=== PATIENT | male | born 1955 | race Caucasian/White ===

== ENCOUNTER 2017-07-04 18:47 | Inpatient (IN) | payer OTHER ==
[2017-07-04] MEDS ORDERED: Nitroglycerin 0.4 MG Tab.SL SL ONE (18:57)
[2017-07-04] MEDS ORDERED: Aspirin 81 MG Tab.Chew PO ONE (18:57)
[2017-07-04] MEDS ORDERED: Sodium Chloride 0.9% 10 ML Syringe FLUSH PRN (18:57)
[2017-07-04] MEDS ORDERED: GI Cocktail Oral Solution 30 ML PO ONE (18:59)
--- NOTE | 2017-07-04 19:31 | EDM.PDOC ---
ED HPI GENERAL MEDICAL PROBLEM - General Chief Complaint: Chest Pain Stated Complaint: chest pain Time Seen by Provider: 07/04/17 18:54 Source of Information: Reports: Patient History Limitations: Reports: No Limitations - History of Present Illness INITIAL COMMENTS - FREE TEXT/NARRATIVE: Patient reports chest pain since 1200 today. Lunch consisted of some cereal. Does have history of pacemaker insertion for heart block. No AICD. He did take some tylenol at home. He also tried to nap. 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 Surgical history includes as above with the pacemaker, left subclavian, appendectomy. No smoking, alcohol, or drug use. He is sweaty, cold, and has mid sternal chest pain. No nausea or vomiting. He is short of breath. No history of cva or PR. Denies blood in urine or stool. Regular bowel movements , regular voiding patterns. Seen last week for UTI and prescribed bactrim. 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, Other (see below) (tums) Middle Chest Pain Score (Numeric/FACES): 7 - Related Data Allergies Allergy/AdvReac Type Severity Reaction Status Date / Time No Known Allergies Allergy Verified 07/04/17 19:00 Home Meds: Home Meds Metoprolol Tartrate [Lopressor] 25 mg PO Q12HR 01/20/14 [History] Omeprazole [Prilosec] 20 mg PO DAILY 01/20/14 [History] Pravastatin [Pravachol] 20 mg PO DAILY 01/20/14 [History] Aspirin [Low Dose Aspirin EC] 81 mg PO DAILY 01/28/14 [History] Calcium Carbonate/Vitamin D3 [Calcium 500-Vit D3 200 Caplet] 1 tab PO TID [History] Ergocalciferol (Vitamin D2) [Vitamin D2] 50,000 unit PO ASDIRECTED 10/22/14 [ History] Potassium Chloride [Klor-Con M20] 40 meq PO BID 10/22/14 [History] Fluticasone Propionate [Flonase] 1 spray INH BID 11/20/14 [History] predniSONE [Prednisone] 3 mg PO DAILY 11/20/14 [History] metFORMIN HCl [Metformin HCl] 1,000 mg PO BID 11/21/15 [History] Alendronate Sodium [Fosamax] 70 mg PO WEEKLY 07/04/17 [History] Sulfamethoxazole/Trimethoprim [Bactrim Ds Tablet] 1 each PO BID 07/04/17 [ History] azaTHIOprine [Imuran] 1.5 tab PO BID 07/04/17 [History] Past Medical History Cardiovascular History: Reports: Pacemaker Other Cardiovascular History: Wegners Disease, vasculitis Respiratory History: Reports: Other (See Below) Other Respiratory History: pneumonia once Other Gastrointestinal History: Colitis Other Genitourinary History: Renal cyst Other Musculoskeletal History: Poly arthritis knee joints Endocrine/Metabolic History: Reports: Diabetes, Type II Immunologic History: Reports: Other (See Below) Other Immunologic History: vasculitis affecting his immune system - Past Surgical History GI Surgical History: Reports: Appendectomy Social & Family History - Tobacco Use Smoking Status *Q: Never Smoker Years of Tobacco use: 2 Second Hand Smoke Exposure: Yes - Alcohol Use Days Per Week of Alcohol Use: 0 Number of Drinks Per Day: 1 Total Drinks Per Week: 0 - Recreational Drug Use Recreational Drug Use: No ED ROS GENERAL - Review of Systems Review Of Systems: See Below Constitutional: Reports: Diaphoresis HEENT: Reports: No Symptoms Respiratory: Reports: Shortness of Breath Cardiovascular: Reports: Chest Pain Endocrine: Reports: No Symptoms GI/Abdominal: Reports: No Symptoms : Reports: No Symptoms Musculoskeletal: Reports: No Symptoms Skin: Reports: Diaphoresis Neurological: Reports: No Symptoms Psychiatric: Reports: No Symptoms Hematologic/Lymphatic: Reports: No Symptoms Immunologic: Reports: No Symptoms ED EXAM, GENERAL - Physical Exam Exam: See Below Exam Limited By: No Limitations General Appearance: Alert, WD/WN, Mild Distress Eye Exam: Bilateral Eye: EOMI, PERRL Ears: Normal TMs Throat/Mouth: Normal Inspection, Normal Oropharynx Head: Atraumatic, Normocephalic Neck: Normal Inspection Respiratory/Chest: No Respiratory Distress, Lungs Clear, Normal Breath Sounds, No Accessory Muscle Use Cardiovascular: Normal Peripheral Pulses, Regular Rate, Rhythm, No Edema, No Murmur, Other (left subclavian pacemaker) GI/Abdominal: Normal Bowel Sounds, Soft, Non-Tender, No Organomegaly, No Distention Back Exam: Normal Inspection, Full Range of Motion Extremities: Normal Inspection, Normal Range of Motion, Non-Tender, No Pedal Edema, Normal Capillary Refill Neurological: Alert, Oriented, CN II-XII Intact, Normal Cognition, Normal Gait, Normal Reflexes Psychiatric: Normal Affect, Normal Mood Skin Exam: Warm, Dry, Intact, Normal Color, No Rash Lymphatic: No Adenopathy Course - Vital Signs Last Recorded V/S: Last Vital Signs Temp 37.6 C 07/04/17 19:47 Pulse 88 07/04/17 20:04 Resp 18 07/04/17 20:04 BP 94/75 07/04/17 20:04 Pulse Ox 94 L 07/04/17 20:04 - Orders/Labs/Meds Orders: Active Orders 24 hr Category Date Time Status EKG Documentation Completion [RC] ROUTINE Care 07/04/17 18:57 Active Chest 1V Frontal [CR] Stat Exams 07/04/17 18:57 Taken CULTURE BLOOD [BC] Stat Lab 07/04/17 20:07 Received CULTURE BLOOD [BC] Stat Lab 07/04/17 20:11 Results URINALYSIS W/MICROSCOPIC [UA W/MICROSCOPIC] [URIN] Stat Lab 07/04/17 19:49 Uncollected Piperacillin/Tazobactam [Zosyn] 2.25 gm Med 07/04/17 20:30 Ordered Sodium Chloride 0.9% [Normal Saline] 100 ml IV Q6H Sodium Chloride 0.9% [Normal Saline] 1,000 ml Med 07/04/17 20:00 Active IV ASDIRECTED Sodium Chloride 0.9% [Saline Flush] Med 07/04/17 18:57 Active 10 ml FLUSH ASDIRECTED PRN Blood Culture x2 Reflex Set [OM.PC] Stat Oth 07/04/17 19:49 Ordered Saline Lock Insert [OM.PC] Routine Oth 07/04/17 18:57 Ordered Medication Orders Sodium Chloride (Normal Saline) 1,000 mls @ 100 mls/hr IV ASDIRECTED SRIDEVI Last Admin: 07/04/17 20:20 Dose: 100 mls/hr Piperacillin Sod/Tazobactam (Sod 2.25 gm/ Sodium Chloride) 100 mls @ 200 mls/ hr IV Q6H SRIDEVI Sodium Chloride (Saline Flush) 10 ml FLUSH ASDIRECTED PRN PRN Reason: Keep Vein Open Labs: Laboratory Tests 07/04/17 07/04/17 07/04/17 Range/Units 19:17 19:17 19:17 WBC 22.8 H* (4.0-10.0) x10^3/uL RBC 5.31 (4.5-6.0) x10^6/uL Hgb 15.4 (14.0-18.0) g/dL Hct 44.6 (40.0-52.0) % MCV 84.0 (78.0-93.0) fL MCH 29.0 (26.0-32.0) pg MCHC 34.5 (32.0-36.0) g/dL RDW Coeff of Moy 13.7 (10.0-15.0) % Plt Count 368 D (130-400) x10^3/uL Add Manual Diff Yes Neutrophils % (Manual) 84 H (50-80) % Band Neutrophils % 2 (0-6) % Lymphocytes % (Manual) 5 L (25-50) % Monocytes % (Manual) 6 (2-11) % Eosinophils % (Manual) 3 (0-4) % Toxic Granulation 1+ slight H Platelet Estimate Adequate Giant Platelets Rare H PT 10.6 (9.8-11.8) SEC INR 1.0 L (2.0-3.5) D-Dimer, Quantitative (<=0.58) mg/LFEU Sodium 130 L (136-145) mmol/L Potassium 4.4 (3.5-5.1) mmol/L Chloride 97 L (98-107) mmol/L Carbon Dioxide 22 (21-32) mmol/L BUN 20 H (7-18) mg/dL Creatinine 1.9 H (0.70-1.30) mg/dL Est Cr Clr Drug Dosing 44.81 mL/min Estimated GFR (MDRD) 36 Glucose 204 H (74-106) mg/dL Lactic Acid (0.4-2.0) mmol/L Calcium 9.2 (8.5-10.1) mg/dL Corrected Calcium 9.92 (8.5-10.1) mg/dL Total Bilirubin 1.2 H (0.2-1.0) mg/dL AST 22 (15-37) U/L ALT 25 (16-63) U/L Alkaline Phosphatase 154 H (46-116) U/L Creatine Kinase 52 (39-308) U/L Creatine Kinase Index TNP CK-MB (CK-2) TNP POC Troponin I (0.00-0.08) ng/mL B-Natriuretic Peptide (<=125) pg/mL Total Protein 8.6 H (6.4-8.2) g/dL Albumin 3.1 L (3.4-5.0) g/dL Globulin 5.5 Albumin/Globulin Ratio 0.56 Amylase (25-115) U/L Lipase (73-393) U/L TSH, Ultra Sensitive (0.358-3.74) uIU/mL 07/04/17 07/04/17 07/04/17 Range/Units 19:17 19:17 19:17 WBC (4.0-10.0) x10^3/uL RBC (4.5-6.0) x10^6/uL Hgb (14.0-18.0) g/dL Hct (40.0-52.0) % MCV (78.0-93.0) fL MCH (26.0-32.0) pg MCHC (32.0-36.0) g/dL RDW Coeff of Moy (10.0-15.0) % Plt Count (130-400) x10^3/uL Add Manual Diff Neutrophils % (Manual) (50-80) % Band Neutrophils % (0-6) % Lymphocytes % (Manual) (25-50) % Monocytes % (Manual) (2-11) % Eosinophils % (Manual) (0-4) % Toxic Granulation Platelet Estimate Giant Platelets PT (9.8-11.8) SEC INR (2.0-3.5) D-Dimer, Quantitative 6.98 H (<=0.58) mg/LFEU Sodium (136-145) mmol/L Potassium (3.5-5.1) mmol/L Chloride (98-107) mmol/L Carbon Dioxide (21-32) mmol/L BUN (7-18) mg/dL Creatinine (0.70-1.30) mg/dL Est Cr Clr Drug Dosing mL/min Estimated GFR (MDRD) Glucose (74-106) mg/dL Lactic Acid 2.1 H (0.4-2.0) mmol/L Calcium (8.5-10.1) mg/dL Corrected Calcium (8.5-10.1) mg/dL Total Bilirubin (0.2-1.0) mg/dL AST (15-37) U/L ALT (16-63) U/L Alkaline Phosphatase (46-116) U/L Creatine Kinase (39-308) U/L Creatine Kinase Index CK-MB (CK-2) POC Troponin I (0.00-0.08) ng/mL B-Natriuretic Peptide 518 H (<=125) pg/mL Total Protein (6.4-8.2) g/dL Albumin (3.4-5.0) g/dL Globulin Albumin/Globulin Ratio Amylase (25-115) U/L Lipase (73-393) U/L TSH, Ultra Sensitive 6.099 H (0.358-3.74) uIU/mL 07/04/17 07/04/17 Range/Units 19:17 19:20 WBC (4.0-10.0) x10^3/uL RBC (4.5-6.0) x10^6/uL Hgb (14.0-18.0) g/dL Hct (40.0-52.0) % MCV (78.0-93.0) fL MCH (26.0-32.0) pg MCHC (32.0-36.0) g/dL RDW Coeff of Moy (10.0-15.0) % Plt Count (130-400) x10^3/uL Add Manual Diff Neutrophils % (Manual) (50-80) % Band Neutrophils % (0-6) % Lymphocytes % (Manual) (25-50) % Monocytes % (Manual) (2-11) % Eosinophils % (Manual) (0-4) % Toxic Granulation Platelet Estimate Giant Platelets PT (9.8-11.8) SEC INR (2.0-3.5) D-Dimer, Quantitative (<=0.58) mg/LFEU Sodium (136-145) mmol/L Potassium (3.5-5.1) mmol/L Chloride (98-107) mmol/L Carbon Dioxide (21-32) mmol/L BUN (7-18) mg/dL Creatinine (0.70-1.30) mg/dL Est Cr Clr Drug Dosing mL/min Estimated GFR (MDRD) Glucose (74-106) mg/dL Lactic Acid (0.4-2.0) mmol/L Calcium (8.5-10.1) mg/dL Corrected Calcium (8.5-10.1) mg/dL Total Bilirubin (0.2-1.0) mg/dL AST (15-37) U/L ALT (16-63) U/L Alkaline Phosphatase (46-116) U/L Creatine Kinase (39-308) U/L Creatine Kinase Index CK-MB (CK-2) POC Troponin I 0.00 (0.00-0.08) ng/mL B-Natriuretic Peptide (<=125) pg/mL Total Protein (6.4-8.2) g/dL Albumin (3.4-5.0) g/dL Globulin Albumin/Globulin Ratio Amylase 44 (25-115) U/L Lipase 270 (73-393) U/L TSH, Ultra Sensitive (0.358-3.74) uIU/mL Meds: Medications Generic Name Dose Route Start Last Admin Trade Name Freq PRN Reason Stop Dose Admin Sodium Chloride 1,000 mls @ 100 mls/hr 07/04/17 20:00 07/04/17 20:20 Normal Saline IV 100 mls/hr ASDIRECTED SRIDEVI Administration Piperacillin Sod/Tazobactam 100 mls @ 200 mls/hr 07/04/17 20:30 Sod 2.25 gm/ Sodium Chloride IV Q6H SRIDEVI Sodium Chloride 10 ml 07/04/17 18:57 Saline Flush FLUSH ASDIRECTED PRN Keep Vein Open Discontinued Medications Generic Name Dose Route Start Last Admin Trade Name Freq PRN Reason Stop Dose Admin Al Hydroxide/Mg Hydroxide 30 ml 07/04/17 18:59 07/04/17 19:07 Gi Cocktail PO 07/04/17 19:00 30 ml ONETIME ONE Administration Aspirin 324 mg 07/04/17 18:57 07/04/17 19:01 Aspirin PO 07/04/17 18:58 324 mg ONETIME ONE Administration Nitroglycerin 0.4 mg 07/04/17 18:57 Nitrostat SL 07/04/17 18:58 ONETIME ONE - Re-Assessments/Exams Free Text/Narrative Re-Assessment/Exam: 07/04/17 20:[address] Saldaña regarding patient. He will accept as attending. We also agreed to forego CTA of the chest with the elevated d-dimer test, due to underlying chronic kidney disease, as well as underlying infectious process. He also does not present with usual PE type symptoms. He will be admitted acute care and Dr. Saldaña will see tonight. Departure - Departure Time of Disposition: 21:14 Disposition: Admitted As Inpatient 66 Condition: Good Clinical Impression: Sepsis secondary to UTI - My Orders Last 24 Hours: My Active Orders 07/04/17 18:57 EKG Documentation Completion [RC] ROUTINE Chest 1V Frontal [CR] Stat Sodium Chloride 0.9% [Saline Flush] 10 ml FLUSH ASDIRECTED PRN Saline Lock Insert [OM.PC] Routine 07/04/17 19:49 URINALYSIS W/MICROSCOPIC [UA W/MICROSCOPIC] [URIN] Stat Blood Culture x2 Reflex Set [OM.PC] Stat 07/04/17 20:00 Sodium Chloride 0.9% [Normal Saline] 1,000 ml IV ASDIRECTED 07/04/17 20:07 CULTURE BLOOD [BC] Stat 07/04/17 20:11 CULTURE BLOOD [BC] Stat 07/04/17 20:30 Piperacillin/Tazobactam [Zosyn] 2.25 gm Sodium Chloride 0.9% [Normal Saline] 100 ml IV Q6H - Assessment/Plan Last 24 Hours: My Active Orders 07/04/17 18:57 EKG Documentation Completion [RC] ROUTINE Chest 1V Frontal [CR] Stat Sodium Chloride 0.9% [Saline Flush] 10 ml FLUSH ASDIRECTED PRN Saline Lock Insert [OM.PC] Routine 07/04/17 19:49 URINALYSIS W/MICROSCOPIC [UA W/MICROSCOPIC] [URIN] Stat Blood Culture x2 Reflex Set [OM.PC] Stat 07/04/17 20:00 Sodium Chloride 0.9% [Normal Saline] 1,000 ml IV ASDIRECTED 07/04/17 20:07 CULTURE BLOOD [BC] Stat 07/04/17 20:11 CULTURE BLOOD [BC] Stat 07/04/17 20:30 Piperacillin/Tazobactam [Zosyn] 2.25 gm Sodium Chloride 0.9% [Normal Saline] 100 ml IV Q6H
[2017-07-04 19:55] LABS: CHLORIDE,CL 97 mmol/L (98-107); SODIUM,NA 130 mmol/L (136-145)
[2017-07-04] MEDS: Sodium Chloride 0.9% 1,000 ML IV SCH (20:20)
[2017-07-04] MEDS ORDERED: Piperacillin/Tazobactam 2.25 GM in Sodium Chloride 0.9% 100 ML IV SCH (20:30)
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
[2017-07-05] MEDS ORDERED: Aluminum Hydroxide/Magnesium Hydroxide/Simethicone Susp 30 ML Cup PO PRN (00:14)
[2017-07-05] MEDS ORDERED: Pantoprazole 40 MG Vial IVPUSH ONE (01:41)
[2017-07-05] MEDS ORDERED: Nitroglycerin 0.4 MG Tab.SL ONE (02:15)
[2017-07-05] MEDS ORDERED: Aspirin 81 MG Tab.Chew PO ONE (02:25)
[2017-07-05] MEDS: Sodium Chloride 0.9% 1,000 ML IV SCH (04:53)
[2017-07-05] MEDS ORDERED: Piperacillin/Tazobactam 3.375 GM in Sodium Chloride 0.9% 100 ML IV SCH ×4 (05:00→22:00)
[2017-07-05] MEDS: Omeprazole 20 MG Cap.CR PO SCH (06:26)
[2017-07-05] MEDS: Calcium Carbonate/Vitamin D3 1250 MG-200 Unit Tab PO SCH ×3 (07:41→20:10)
[2017-07-05] MEDS: Potassium Chloride 20 MEQ Tab.ER PO SCH ×2 (07:41→17:12)
[2017-07-05] MEDS: Aspirin 81 MG Tab.EC PO SCH (07:41)
[2017-07-05] MEDS: metFORMIN 500 MG Tab PO SCH ×2 (07:42→20:08)
[2017-07-05] MEDS ORDERED: Non-Formulary Medication 1 Each (Pravastatin 20 MG) PO SCH (08:00)
[2017-07-05] MEDS ORDERED: Metoprolol Tartrate 25 MG Tab PO SCH (08:00)
[2017-07-05] MEDS ORDERED: predniSONE 1 MG Tab PO SCH (08:00)
--- NOTE | 2017-07-05 10:24 | PCM.PN ---
- General Info Date of Service: 07/05/17 - Review of Systems Systems Review Comment:: Addendum to H&P: ROS Derm: He has had alopecia totalis since age 5, was told that some day it would resolve but it has not. The only hair on his head is some irregular hairs on the chin and neck, which has been attributed to his prednisone Rx. Exam: Skin: Totally bald and no eyebrows. History: Starting about 1:30 during the night he started having fairly severe retrosternal chest pain again. He also had sweating again with one of the episodes. Said it was partly dull and partly sharp, and did endorse feeling like pressure. EKG was unchanged from the one that he had in ER and showed no ST-T changes, just the LAHB as before. He was pacing himself in sinus rhythm, no pacemaker spikes seen. Liquid antacid, IV Prilosec, sublingual TNG did not seem to affect his pain. His BP was also still mildly low at about 95 so we increased his IV saline rate from 100 up to 125 mL/hr. I discussed this with Cardiology at , she said painful pericarditis would certainly be possible with Wegeners granulomatosis, and recommended that if his troponin was again negative, that he did not need to transfer for this. Indeed, his troponin remained negative then and this morning. JBB seeing him because MKA not available until tomorrow. He is feeling OK without any chest pain today, does admit that when he was having the episodes of chest pain he felt it was less severe when sitting up and aggravated by lying down, although it was not so severe that he remained sitting because of this. EchoKG is not available locally until possibly 07/10, he is willing to go to [place] for it after D/C. He remains afebrile, BP still a little bit low. Blood cultures are incubating and urine is available, that will be cultured now also. He is continuing to get IV Zosyn; his Bactrim is on hold, and we are putting metoprolol on hold today because of his hypotension. His Na+ is low today, 129, had been normal previously until his office visit on 06/30 when his Na+ was 133. His K+ is high normal. Exam: -Mild hypotension -Alert, lucid and comfortable, denies any pain -Heart sounds mildly diminished in intensity but normal with no irregularity or murmur and no rub -Lungs clear -Skin warm and dry - Patient Data Vitals - Most Recent: Last Vital Signs Temp 36.6 C 07/05/17 09:39 Pulse 111 H 07/05/17 09:39 Resp 28 H 07/05/17 09:39 BP 120/64 07/05/17 09:39 Pulse Ox 97 07/05/17 09:39 Weight - Most Recent: 136.078 kg I&O - Last 24 Hours: Intake & Output 07/04/17 07/05/17 07/05/17 22:59 06:59 14:59 Intake Total 1020 180 Output Total 300 Balance 720 180 Lab Results Last 24 Hours: Laboratory Results - last 24 hr 07/05/17 07/05/17 07/05/17 Range/Units 02:44 03:00 08:00 ESR (0-16) mm/hr Sodium (136-145) mmol/L Potassium (3.5-5.1) mmol/L Chloride (98-107) mmol/L Carbon Dioxide (21-32) mmol/L BUN (7-18) mg/dL Creatinine (0.70-1.30) mg/dL Est Cr Clr Drug Dosing mL/min Estimated GFR (MDRD) Glucose (74-106) mg/dL Lactic Acid (0.4-2.0) mmol/L Calcium (8.5-10.1) mg/dL Troponin I < 0.017 < 0.017 (<=0.056) ng/mL Urine Color Dark yellow H (YELLOW) Urine Appearance Slightly cloudy H (CLEAR) Urine pH 5.5 (5.0-8.0) Ur Specific [place] >=1.030 Urine Protein 100 H (NEGATIVE) mg/dL Urine Glucose (UA) 100 H (NEGATIVE) mg/dL Urine Ketones 15 H (NEGATIVE) mg/dL Urine Occult Blood Moderate H (NEGATIVE) Urine Nitrite Negative (NEGATIVE) Urine Bilirubin Large H (NEGATIVE) Urine Urobilinogen 4.0 H (0.2) EU/dL Ur Leukocyte Esterase Negative (NEGATIVE) Urine RBC 20-30 H (NOT SEEN) /HPF Urine WBC 0-5 (NOT SEEN) /HPF Ur Squamous Epith Cells Few H (NEGATIVE) /HPF Amorphous Sediment Few Urine Bacteria Few H (NEGATIVE) /HPF Urine Mucus Few H (NEGATIVE) /LPF 07/05/17 07/05/17 07/05/17 Range/Units 08:00 08:00 08:00 ESR 78 H (0-16) mm/hr Sodium 129 L* (136-145) mmol/L Potassium 5.3 H (3.5-5.1) mmol/L Chloride 98 (98-107) mmol/L Carbon Dioxide 17 L (21-32) mmol/L BUN 26 H (7-18) mg/dL Creatinine 2.0 H (0.70-1.30) mg/dL Est Cr Clr Drug Dosing 43.83 mL/min Estimated GFR (MDRD) 34 Glucose 199 H (74-106) mg/dL Lactic Acid 3.4 H (0.4-2.0) mmol/L Calcium 8.3 L (8.5-10.1) mg/dL Troponin I (<=0.056) ng/mL Urine Color (YELLOW) Urine Appearance (CLEAR) Urine pH (5.0-8.0) Ur Specific [place] Urine Protein (NEGATIVE) mg/dL Urine Glucose (UA) (NEGATIVE) mg/dL Urine Ketones (NEGATIVE) mg/dL Urine Occult Blood (NEGATIVE) Urine Nitrite (NEGATIVE) Urine Bilirubin (NEGATIVE) Urine Urobilinogen (0.2) EU/dL Ur Leukocyte Esterase (NEGATIVE) Urine RBC (NOT SEEN) /HPF Urine WBC (NOT SEEN) /HPF Ur Squamous Epith Cells (NEGATIVE) /HPF Amorphous Sediment Urine Bacteria (NEGATIVE) /HPF Urine Mucus (NEGATIVE) /LPF Med Orders - Current: Current Medications Al Hydroxide/Mg Hydroxide (Mag-Al Plus) 30 ml PO Q2H PRN PRN Reason: Dyspepsia Last Admin: 07/05/17 00:25 Dose: 30 ml Aspirin (Halfprin) 81 mg PO DAILY [facility] Last Admin: 07/05/17 07:41 Dose: 81 mg Azathioprine (Imuran) 75 mg PO BID [facility] Last Admin: 07/05/17 07:41 Dose: 75 mg Calcium Carbonate (Calcium Carbonate/Vitamin D 1250 Mg-200 Unit) 1 tab PO TID [facility] Last Admin: 07/05/17 07:41 Dose: 1 tab Ergocalciferol (Vitamin D2) 50,000 units PO Q7D@0900 [facility] Piperacillin Sod/Tazobactam (Sod 3.375 gm/ Sodium Chloride) 100 mls @ 25 mls/ hr IV Q8H [facility] Metformin HCl (Glucophage) 1,000 mg PO BID [facility] Last Admin: 07/05/17 07:42 Dose: 1,000 mg Metoprolol Tartrate (Lopressor) 25 mg PO Q12HR [facility] Last Admin: 07/05/17 09:27 Dose: Not Given Omeprazole (Omeprazole) 20 mg PO ACBRK [facility] Last Admin: 07/05/17 06:26 Dose: 20 mg Potassium Chloride (Klor-Con M20) 40 meq PO BIDMEALS [facility] Last Admin: 07/05/17 07:41 Dose: 40 meq Prednisone (Prednisone) 3 mg PO DAILY [facility] Last Admin: 07/05/17 07:42 Dose: 3 mg Simvastatin (Zocor) 10 mg PO BEDTIME [facility] Sodium Chloride (Saline Flush) 10 ml FLUSH ASDIRECTED PRN PRN Reason: Keep Vein Open Discontinued Medications Al Hydroxide/Mg Hydroxide (Gi Cocktail) 30 ml PO ONETIME ONE Stop: 07/04/17 19:00 Last Admin: 07/04/17 19:07 Dose: 30 ml Aspirin (Aspirin) 324 mg PO ONETIME ONE Stop: 07/04/17 18:58 Last Admin: 07/04/17 19:01 Dose: 324 mg Aspirin (Aspirin) 162 mg PO ONETIME ONE Stop: 07/05/17 02:26 Last Admin: 07/05/17 04:57 Dose: 162 mg Sodium Chloride (Normal Saline) 1,000 mls @ 100 mls/hr IV ASDIRECTED [facility] Last Admin: 07/05/17 04:53 Dose: 125 mls/hr Piperacillin Sod/Tazobactam (Sod 2.25 gm/ Sodium Chloride) 100 mls @ 200 mls/ hr IV Q6H [facility] Last Admin: 07/04/17 21:12 Dose: 200 mls/hr Piperacillin Sod/Tazobactam (Sod 3.375 gm/ Sodium Chloride) 100 mls @ 25 mls/ hr IV Q8H [facility] Last Admin: 07/05/17 06:01 Dose: 25 mls/hr Nitroglycerin (Nitrostat) 0.4 mg SL ONETIME ONE Stop: 07/04/17 18:58 Last Admin: 07/05/17 00:29 Dose: Not Given Nitroglycerin (Nitrostat) Confirm Administered Dose 0.4 mg .ROUTE .STK-MED ONE Stop: 07/05/17 02:16 Last Admin: 07/05/17 02:10 Dose: 0.4 mg Pantoprazole Sodium (Protonix Iv) 40 mg IVPUSH ONETIME ONE Stop: 07/05/17 01:42 Last Admin: 07/05/17 02:08 Dose: 40 mg - Problem List Review Problem List Initiated/Reviewed/Updated: Yes - My Orders Last 24 Hours: My Active Orders 07/04/17 17:30 CULTURE URINE [RM] Routine 07/04/17 21:50 Patient Status [ADT] Routine Oxygen Therapy [RC] .PRN Vital Signs [RC] 06,10,14,18,, Resuscitation Status Routine 07/05/17 00:12 Telemetry Monitoring [Cardiac Monitoring] [RC] 06,10,14,18,,02 07/05/17 00:14 Alum Hydrox/Mag Hydrox/Simeth [Mag-Al Plus] 30 ml PO Q2H PRN 07/05/17 07:00 Omeprazole 20 mg PO ACBRK 07/05/17 08:00 Aspirin [Halfprin] 81 mg PO DAILY Calcium Carbonate/Vitamin D3 [Calcium Carbonate/Vitamin D 1250 MG-200 Unit] 1 tab PO TID Metoprolol Tartrate [Lopressor] 25 mg PO Q12HR Potassium Chloride [Klor-Con M20] 40 meq PO BIDMEALS azaTHIOprine [Imuran] 75 mg PO BID metFORMIN [Glucophage] 1,000 mg PO BID predniSONE 3 mg PO DAILY 07/05/17 20:00 Simvastatin [Zocor] 10 mg PO BEDTIME 07/07/17 09:00 Ergocalciferol (Vitamin D2) [Vitamin D2] 50,000 units PO Q7D@0900 - Assessment Assessment:: Impression: -Fever, sweating, leukocytosis, hypotension while on Rx for UTI; still suspect mild urosepsis -Episodic chest pain since yesterday, suspicious for pericardial pain in view of his Wegeners granulomatosis; no pain this morning, I feel no indication for increasing his prednisone -Mild hyponatremia in spite of getting IV NS - Plan Plan:: Plan: -Continue IV Zosyn pending culture results from blood and urine -No more IV Prilosec since it did not seem to help his chest pain -Saline lock his IV and allow him to move about -Order entered for EchoKG in his Epic chart, revise this as necessary, he is willing to go to [place] for it
[2017-07-05] MEDS ORDERED: Ciprofloxacin 500 MG Tab PO SCH (14:45)
[2017-07-05] MEDS ORDERED: Albuterol 0.083% 2.5 MG/3 ML Neb Soln NEB PRN (17:44)
[2017-07-05] MEDS ORDERED: Metoprolol Tartrate 5 MG/5 ML SDV IVPUSH ONE ×2 (18:24→19:26)
[2017-07-05] MEDS ORDERED: Lactated Ringers 1,000 ML IV SCH (19:15)
[2017-07-05] MEDS ORDERED: Simvastatin 10 MG Tab PO SCH (20:00)
[2017-07-05] MEDS: Metoprolol Tartrate 25 MG Tab PO SCH (20:12)
[2017-07-06] MEDS: Omeprazole 20 MG Cap.CR PO SCH (06:29)
[2017-07-06] MEDS ORDERED: Piperacillin/Tazobactam 3.375 GM in Sodium Chloride 0.9% 100 ML IV SCH (07:00)
[2017-07-06] MEDS: Metoprolol Tartrate 25 MG Tab PO SCH (07:54)
[2017-07-06] MEDS: Calcium Carbonate/Vitamin D3 1250 MG-200 Unit Tab PO SCH (07:54)
[2017-07-06] MEDS: Aspirin 81 MG Tab.EC PO SCH (07:54)
[2017-07-06 07:56] VITALS: BP 116/63
[2017-07-06] MEDS ORDERED: predniSONE 1 MG Tab PO SCH (08:00)
[2017-07-06] MEDS ORDERED: Enoxaparin 100 MG/1 ML Syringe SUBCUT ONE (08:39)
--- NOTE | 2017-07-07 00:17 | DISCH ---
PRIMARY DISCHARGE DIAGNOSES: 1. Chest pain, possible pericarditis. No echo available here. 2. Atrial fibrillation with rapid ventricular rate starting around 6:00 p.m. on the with known history of paroxysmal atrial fibrillation but not on Coumadin. 3. Acute on chronic renal failure, probably related to recent Bactrim use for UTI. Creatinine 1.9 on admission, went up to 2 and 1.9 on discharge. 4. Hematuria with microscopic 20-30 RBCs but no WBCs. The patient did have dysuria. Urine cultures are negative. He had completed a course of Bactrim, but he had been on Zosyn. Otherwise, hematuria could be from his glomerular nephritis. 5. 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 Also on Imuran. 6. 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 7. Leukocytosis. Blood cultures have been negative. Chest x-ray was negative. 8. Hyponatremia. Sodium 129. 9. Lactic acidosis. Lactic mildly elevated but did go down to 3.1 today, probably related to ongoing metformin during his illness. 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 It had been controlled with metformin, not on long-term insulin use. 11.GERD. 12.History of pneumonia. 13.Essential hypertension. 14.Hyperlipidemia. 15.TSH was mildly elevated at 6.09. REASON FOR ADMISSION: On the date of admission, this 61-year-old male came into the emergency room with chest discomfort. He has had no further chest discomfort since early Monday morning. His troponins remain negative. Unfortunately, he went into atrial fibrillation with rapid ventricular rates that were increasing during the night. He received some IV metoprolol twice, however, heart rates remained in the 130s and 140s. Blood pressure was running lower in the systolic 90s. I discussed with him possibility of transfer to [place] and he was agreeable. He said he felt okay. He is a little short of breath. Respiratory rates at one point were up over 30. He had no fevers since admission. His last fevers recorded were when he was in the clinic on the with chest discomfort, fevers, and dysuria and was treated with Bactrim for the UTI. He received IV Zosyn while he was here. Otherwise, his mental status was appropriate. It should be noted that his D-dimer was significantly elevated at 6.98. TSH was mildly elevated at 6.09 probably due to his acute illness. He does not have hypothyroidism and further followup on that can be done as an outpatient. PHYSICAL EXAMINATION: VITAL SIGNS: Otherwise, on transfer include a temperature 98.3, pulse 133, blood pressure 116/63, respiratory rate 36, O2 saturation of 90 on room air. Oxygen was started. GENERAL: He is in no acute distress. HEART: Regularly irregular with tachycardia. LUNGS: Sounds are clear to auscultation bilaterally without crackles or wheezes. ABDOMEN: Positive bowel sounds, soft and nontender. EXTREMITIES: Warm and dry, no edema. MENTAL STATUS: Alert and orientated x3. DISCHARGE PLANS/INSTRUCTIONS: The patient is being transferred to [place] for higher level of care. He will need possible cardioversion. He likely does need some investigation to rule out PE. He also needs probably some nephrology input in case his steroids need to be adjusted for this renal insufficiency or at least he will need ongoing monitoring. The patient will be transferred by ALS. Greater than 30 minutes spent on this discharge process. MKA: 07/06/2017 08:37:50 MODL: 07/07/2017 00:12:13 /[id number]
[2017-07-07] MEDS ORDERED: Ergocalciferol (Vitamin D2) 50,000 Unit Cap PO SCH (09:00)
[2017-07-28] MEDS ORDERED: Ergocalciferol (Vitamin D2) 50,000 Unit Cap PO SCH (09:00)
== END 2017-07-06 08:55 | disposition short-term general hospital (02) | DRG 315 ==
LOC: VM.ED 18:47 → VM.MS 20:28
PROVIDERS: ADMIT Family Medicine; ATTEND Family Medicine
DX: I31.9 Disease of pericardium, unspecified (principal); N17.9 Acute kidney failure, unspecified; M31.31 Wegener's granulomatosis with renal involvement; E87.1 Hypo-osmolality and hyponatremia; E87.2 Acidosis; Z68.41 Body mass index [BMI] 40.0-44.9, adult; I48.0 Paroxysmal atrial fibrillation; I12.9 Hypertensive chronic kidney disease with stage 1 through stage 4 chronic kidney disease, or unspecified chronic kidney disease; N18.3 Chronic kidney disease, stage 3 (moderate); E09.22 Drug or chemical induced diabetes mellitus with diabetic chronic kidney disease; T38.0X5S Adverse effect of glucocorticoids and synthetic analogues, sequela; I95.9 Hypotension, unspecified; R31.29 Other microscopic hematuria; D72.829 Elevated white blood cell count, unspecified; K21.9 Gastro-esophageal reflux disease without esophagitis; E66.01 Morbid (severe) obesity due to excess calories; G47.33 Obstructive sleep apnea (adult) (pediatric); E78.5 Hyperlipidemia, unspecified; F17.220 Nicotine dependence, chewing tobacco, uncomplicated; Z95.0 Presence of cardiac pacemaker; Z79.52 Long term (current) use of systemic steroids; Z79.84 Long term (current) use of oral hypoglycemic drugs; Z79.82 Long term (current) use of aspirin; Z79.899 Other long term (current) drug therapy
CPT/HCPCS: 36415; 71010; 80048; 80053; 81001; 82150; 82550; 83605; 83690; 83880; 84443; 84484; 85025; 85379; 85610; 85652; 87040; 87086; 93005; 96361; 96374; 99285; A9270-GY; C9113; J1650; J2543; J3490; J7030; J7050; J7120; J7500

== ENCOUNTER 2020-10-23 21:22 | Observation (INO) | payer OTHER ==
[2020-10-23] MEDS ORDERED: Albuterol/Ipratropium 3.0-0.5 MG/3 ML Neb Soln NEB ONE (22:05)
--- NOTE | 2020-10-23 22:16 | EDM.PDOC ---
ED HPI GENERAL MEDICAL PROBLEM - General Chief Complaint: Respiratory Problem Stated Complaint: SOB / Fatigue / Post Covid Time Seen by Provider: 10/23/20 22:00 Source of Information: Reports: Patient History Limitations: Reports: No Limitations - History of Present Illness INITIAL COMMENTS - FREE TEXT/NARRATIVE: Patient comes emergency department today with complaints of increasing shortness of breath. This patient just finished his 10-day quarantine for Covid. He has had increasing fatigue weakness and shortness of breath. He is even short of breath at rest. He has a continued cough that is dry hacking nonproductive. He has no pain in his chest. No syncope no palpitations. He has had an intermittent fever over the past couple of days. No abdominal pain nausea or vomiting. Intermittent diarrhea. He has had good oral intake of fluids and solids according to the patient. He does have a history of vasculitis for which she is on chronic prednisone for. 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 No pain in his calf or his thighs. His shortness of breath is slowly gotten worse over the past couple of days he did not suddenly become short of breath. He does not smoke. Chest Pain Pain Score (Numeric/FACES): 2 - Related Data Allergies Allergy/AdvReac Type Severity Reaction Status Date / Time No Known Allergies Allergy Verified 10/23/20 21:59 Home Meds: Home Meds Omeprazole [Prilosec] 40 mg PO BIDAC 01/20/14 [History] Aspirin [Low Dose Aspirin EC] 81 mg PO DAILY 01/28/14 [History] Calcium Carbonate/Vitamin D3 [Calcium 500-Vit D3 200 Caplet] 1 tab PO BIDMEALS 10/22/14 [History] Ergocalciferol (Vitamin D2) [Vitamin D2] 50,000 unit PO ASDIRECTED 10/22/14 [History] Fluticasone Propionate [Flonase] 1 spray GRAHAM BID PRN 11/20/14 [History] metFORMIN HCl [Metformin HCl] 1,000 mg PO BID 11/21/15 [History] Alendronate Sodium [Fosamax] 70 mg PO Q7D 07/04/17 [History] Insulin Glarg,Human.Rec.Analog [Lantus] 15 unit SQ DAILY 07/31/17 [History] Lisinopril 5 mg PO DAILY 11/22/18 [History] Sulfamethoxazole/Trimethoprim [Bactrim Ds Tablet] 1 tab PO ASDIRECTED 11/23/18 [History] Pravastatin [Pravachol] 20 mg PO BEDTIME 02/13/19 [History] azaTHIOprine [Imuran] 50 mg PO DAILY 02/13/19 [History] predniSONE 10 mg PO DAILY 02/13/19 [History] Albuterol Sulfate [Albuterol Sulfate Hfa] 1 puff PO QID PRN 10/24/20 [History] Ketoconazole [Ketoconazole 2%] 1 applic TOP DAILY PRN 10/24/20 [History] Metoprolol Tartrate [Lopressor] 25 mg PO BID 10/24/20 [History] Potassium Chloride [Klor-Con M20] 20 meq PO BID 10/24/20 [History] Past Medical History HEENT History: Reports: Hard of Hearing, Impaired Vision Other HEENT History: hard of hearing in right ear, wears glasses Cardiovascular History: Reports: Afib, CAD, High Cholesterol, Hypertension, Pacemaker, Other (See Below) Other Cardiovascular History: Wegners Disease (graqnulomatosis w/ polyangiitis); complete heart block; 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; hx of chest pain Respiratory History: Reports: Sleep Apnea, Other (See Below) Other Respiratory History: pneumonia once Gastrointestinal History: Reports: GERD, Hemorrhoids, Other (See Below) Other Gastrointestinal History: Colitis; leukoplakia Genitourinary History: Reports: Acute Renal Failure, Chronic Renal Insuffiency, Other (See Below) Other Genitourinary History: BRITT; Renal cyst; proteinuria Musculoskeletal History: Reports: Gout, Other (See Below) Other Musculoskeletal History: DJD;Poly arthritis knee joints; hx of rt ankle fx Neurological History: Reports: Other (See Below) Other Neuro History: family hx of Raven's Endocrine/Metabolic History: Reports: Diabetes, Type II, Obesity/BMI 30+, Vitamin D Deficiency Hematologic History: Reports: Other (See Below) Other Hematologic History: neutropenia Immunologic History: Reports: Other (See Below) Other Immunologic History: vasculitis affecting his immune system Dermatologic History: Reports: Other (See Below) Other Dermatologic History: alopecia totalis - Infectious Disease History Infectious Disease History: Reports: Chicken Pox - Past Surgical History HEENT Surgical History: Reports: None Cardiovascular Surgical History: Reports: Pacer, Other (See Below) Other Cardiovascular Surgeries/Procedures: cardiac catheterization; emergency pericardial drainage; pericardial window GI Surgical History: Reports: Appendectomy Male Surgical History: Reports: None Endocrine Surgical History: Reports: None Neurological Surgical History: Reports: None Musculoskeletal Surgical History: Reports: None Dermatological Surgical History: Reports: None Social & Family History - Family History Family Medical History: No Pertinent Family History - Caffeine Use Caffeine Use: Reports: Soda Caffeine Use Comment: diet soda ED ROS GENERAL - Review of Systems Review Of Systems: Comprehensive ROS is negative, except as noted in HPI. ED EXAM, GENERAL - Physical Exam Exam: See Below Free Text/Narrative:: The patient is only able to speak in 4-5 word sentences he has some audible wheezing and he is minimally tachypneic no labored breathing. Exam Limited By: No Limitations General Appearance: Alert, WD/WN, No Apparent Distress Eye Exam: Bilateral Eye: EOMI, PERRL Ears: Normal External Exam, Normal TMs Nose: Normal Inspection Throat/Mouth: Normal Inspection, Normal Lips, Normal Teeth, Normal Voice Head: Atraumatic, Normocephalic Neck: Normal Inspection, Supple, Non-Tender Respiratory/Chest: No Accessory Muscle Use, Chest Non-Tender, Respiratory Distress (Mild), Decreased Breath Sounds (Throughout), Wheezing (Inspiratory expiratory) Cardiovascular: Normal Peripheral Pulses, Regular Rate, Rhythm Peripheral Pulses: 2+: Radial (L), Radial (R), Posterior Tibial (L), Posterior Tibial (R), Dorsalis Pedis (L), Dorsalis Pedis (R) GI/Abdominal: Normal Bowel Sounds, Soft, Non-Tender, No Distention, Hernia (There is a rather large easily reducible epigastric ventral hernia.) Back Exam: Normal Inspection, Full Range of Motion Extremities: Normal Inspection, Normal Range of Motion, Non-Tender, No Pedal Edema, Normal Capillary Refill Neurological: Alert, Oriented, Normal Cognition, No Motor/Sensory Deficits Psychiatric: Normal Affect, Normal Mood Skin Exam: Warm, Dry, Intact, Normal Color, No Rash Course - Vital Signs Last Recorded V/S: Last Vital Signs Temp 97.3 F 10/24/20 09:15 Pulse 62 10/24/20 09:21 Resp 18 10/24/20 09:15 BP 116/73 10/24/20 09:22 Pulse Ox 94 L 10/24/20 09:15 - Orders/Labs/Meds Orders: Active Orders 24 hr Category Date Time Status EKG Documentation Completion [RC] STAT Care 10/23/20 22:17 Active RT Aerosol Therapy [RC] .PRN Care 10/23/20 22:05 Active Sodium Chloride 0.9% [Saline Flush] Med 10/23/20 23:42 Active 10 ml FLUSH ASDIRECTED PRN Peripheral IV Insertion Adult [OM.PC] Stat Oth 10/23/20 23:42 Ordered Medication Orders Albuterol/Ipratropium (Duoneb 3.0-0.5 Mg/3 Ml) 3 ml NEB Q4HRRT PRN PRN Reason: Shortness of Breath Alendronate Sodium (Fosamax) 70 mg PO Q7D@0600 [facility] Aspirin (Halfprin) 81 mg PO DAILY [facility] Last Admin: 10/24/20 09:22 Dose: 81 mg Documented by: CATHLEEN Azathioprine (Imuran) 50 mg PO DAILY [facility] Last Admin: 10/24/20 09:21 Dose: 50 mg Documented by: CATHLEEN Calcium Carbonate (Calcium Carbonate/Vitamin D 1250 Mg-200 Unit) 1 tab PO BIDMEALS [facility] Dextrose/Water (Dextrose 50% In Water) 50 ml IV ASDIRECTED PRN PRN Reason: Hypoglycemia Ergocalciferol (Vitamin D2) 1.25 mg PO MoFr@0800 [facility] Last Admin: 10/24/20 09:22 Dose: 1.25 mg Documented by: CATHLEEN Glucagon (Glucagen) 1 mg IM ASDIRECTED PRN PRN Reason: Hypoglycemia Lactated Ringer's (Ringers, Lactated) 1,000 mls @ 200 mls/hr IV ASDIRECTED [facility] Last Admin: 10/24/20 07:40 Dose: 200 mls/hr Documented by: Infusion: 10/24/20 07:40 Dose: 200 mls/hr Documented by: Admin: 10/24/20 02:55 Dose: 200 mls/hr Documented by: PASTOR Insulin Glargine (Lantus) 15 unit SUBCUT DAILY [facility] Last Admin: 10/24/20 09:23 Dose: 15 units Documented by: CATHLEEN Lisinopril (Prinivil) 5 mg PO DAILY [facility] Last Admin: 10/24/20 09:22 Dose: 5 mg Documented by: AMBROCIORYGRCaterina Metformin HCl (Glucophage) 1,000 mg PO BID [facility] Last Admin: 10/24/20 09:23 Dose: 1,000 mg Documented by: IHRYGRCaterina Metoprolol Tartrate (Lopressor) 25 mg PO BID [facility] Last Admin: 10/24/20 09:21 Dose: 25 mg Documented by: AMBROCIORYGRCaterina Omeprazole (Omeprazole) 40 mg PO BIDAC [facility] Potassium Chloride (Klor-Con M20) 20 meq PO BID [facility] Last Admin: 10/24/20 09:22 Dose: 20 meq Documented by: AMBROCIORYGRCaterina Simvastatin (Zocor) 10 mg PO BEDTIME [facility] Sodium Chloride (Saline Flush) 10 ml FLUSH ASDIRECTED PRN PRN Reason: Keep Vein Open Labs: Laboratory Tests 10/23/20 10/23/20 10/23/20 Range/Units 22:44 22:44 22:44 WBC 5.4 (4.0-10.0) x10^3/uL RBC 6.16 H (4.5-6.0) x10^6/uL Hgb 17.6 D (14.0-18.0) g/dL Hct 50.6 (40.0-52.0) % MCV 82.1 (78.0-93.0) fL MCH 28.6 (26.0-32.0) pg MCHC 34.8 (32.0-36.0) g/dL RDW Coeff of Moy 14.1 (10.0-15.0) % Plt Count 126 L D (130-400) x10^3/uL Neut % (Auto) 72.6 (50.0-80.0) % Lymph % (Auto) 10.8 L (25.0-50.0) % [place] % (Auto) 16.6 H (2.0-11.0) % Eos % (Auto) 0.0 (0.0-4.0) % Baso % (Auto) 0.0 L (0.2-1.2) % PT 11.4 (9.5-12.3) SEC INR 1.1 L (2.0-3.5) APTT 28.5 (25.6-32.8) SEC D-Dimer, Quantitative 1.72 H (<=0.58) mg/LFEU Sodium 137 (136-145) mmol/L Potassium 3.6 (3.5-5.1) mmol/L Chloride 102 (98-107) mmol/L Carbon Dioxide 22 (21-32) mmol/L Anion Gap 16.6 (10-20) mmol/L BUN 20 H (7-18) mg/dL Creatinine 1.8 H (0.70-1.30) mg/dL Est Cr Clr Drug Dosing 46.85 mL/min Estimated GFR (MDRD) 38 Glucose 129 H (74-106) mg/dL Lactic Acid (0.4-2.0) mmol/L Calcium 8.6 (8.5-10.1) mg/dL Corrected Calcium 9.40 (8.5-10.1) mg/dL Total Bilirubin 1.0 (0.2-1.0) mg/dL AST 46 H (15-37) U/L ALT 30 (16-63) U/L Alkaline Phosphatase 135 H (46-116) U/L Troponin I < 0.017 (<=0.056) ng/mL C-Reactive Protein 19.0 H (<=0.9) mg/dL Total Protein 6.7 (6.4-8.2) g/dL Albumin 3.0 L (3.4-5.0) g/dL Globulin 3.7 Albumin/Globulin Ratio 0.81 10/23/20 Range/Units 22:44 WBC (4.0-10.0) x10^3/uL RBC (4.5-6.0) x10^6/uL Hgb (14.0-18.0) g/dL Hct (40.0-52.0) % MCV (78.0-93.0) fL MCH (26.0-32.0) pg MCHC (32.0-36.0) g/dL RDW Coeff of Moy (10.0-15.0) % Plt Count (130-400) x10^3/uL Neut % (Auto) (50.0-80.0) % Lymph % (Auto) (25.0-50.0) % [place] % (Auto) (2.0-11.0) % Eos % (Auto) (0.0-4.0) % Baso % (Auto) (0.2-1.2) % PT (9.5-12.3) SEC INR (2.0-3.5) APTT (25.6-32.8) SEC D-Dimer, Quantitative (<=0.58) mg/LFEU Sodium (136-145) mmol/L Potassium (3.5-5.1) mmol/L Chloride (98-107) mmol/L Carbon Dioxide (21-32) mmol/L Anion Gap (10-20) mmol/L BUN (7-18) mg/dL Creatinine (0.70-1.30) mg/dL Est Cr Clr Drug Dosing mL/min Estimated GFR (MDRD) Glucose (74-106) mg/dL Lactic Acid 2.1 H* (0.4-2.0) mmol/L Calcium (8.5-10.1) mg/dL Corrected Calcium (8.5-10.1) mg/dL Total Bilirubin (0.2-1.0) mg/dL AST (15-37) U/L ALT (16-63) U/L Alkaline Phosphatase (46-116) U/L Troponin I (<=0.056) ng/mL C-Reactive Protein (<=0.9) mg/dL Total Protein (6.4-8.2) g/dL Albumin (3.4-5.0) g/dL Globulin Albumin/Globulin Ratio Meds: Medications Generic Name Dose Route Start Last Admin Trade Name Freq PRN Reason Stop Dose Admin Albuterol/Ipratropium 3 ml 10/24/20 01:20 Duoneb 3.0-0.5 Mg/3 Ml NEB Q4HRRT PRN Shortness of Breath Alendronate Sodium 70 mg 10/25/20 06:00 Fosamax PO Q7D@0600 [facility] Aspirin 81 mg 10/24/20 08:30 10/24/20 09:22 Halfprin PO 81 mg DAILY [facility] Administration Azathioprine 50 mg 10/24/20 08:30 10/24/20 09:21 Imuran PO 50 mg DAILY [facility] Administration Calcium Carbonate 1 tab 10/24/20 18:00 Calcium Carbonate/Vitamin D 1250 Mg-200 Unit PO BIDMEALS [facility] Dextrose/Water 50 ml 10/24/20 08:23 Dextrose 50% In Water IV ASDIRECTED PRN Hypoglycemia Ergocalciferol 1.25 mg 10/24/20 08:30 10/24/20 09:22 Vitamin D2 PO 1.25 mg MoFr@0800 [facility] Administration Glucagon 1 mg 10/24/20 08:23 Glucagen IM ASDIRECTED PRN Hypoglycemia Lactated Ringer's 1,000 mls @ 200 mls/hr 10/24/20 01:30 10/24/20 07:40 Ringers, Lactated IV 200 mls/hr ASDIRECTED [facility] Administration Insulin Glargine 15 unit 10/24/20 08:30 10/24/20 09:23 Lantus SUBCUT 15 units DAILY [facility] Administration Lisinopril 5 mg 10/24/20 08:30 10/24/20 09:22 Prinivil PO 5 mg DAILY [facility] Administration Metformin HCl 1,000 mg 10/24/20 08:30 10/24/20 09:23 Glucophage PO 1,000 mg BID [facility] Administration Metoprolol Tartrate 25 mg 10/24/20 08:30 10/24/20 09:21 Lopressor PO 25 mg BID [facility] Administration Omeprazole 40 mg 10/24/20 17:00 Omeprazole PO BIDAC [facility] Potassium Chloride 20 meq 10/24/20 08:30 10/24/20 09:22 Klor-Con M20 PO 20 meq BID [facility] Administration Simvastatin 10 mg 10/24/20 20:00 Zocor PO BEDTIME [facility] Sodium Chloride 10 ml 10/23/20 23:42 Saline Flush FLUSH ASDIRECTED PRN Keep Vein Open Discontinued Medications Generic Name Dose Route Start Last Admin Trade Name Manuelq PRN Reason Stop Dose Admin Albuterol/Ipratropium 3 ml 10/23/20 22:05 10/23/20 22:22 Duoneb 3.0-0.5 Mg/3 Ml NEB 10/23/20 22:06 3 ml ONETIME ONE Administration Lactated Ringer's 1,000 mls @ 999 mls/hr 10/23/20 23:42 10/24/20 00:30 Ringers, Lactated IV 10/24/20 00:42 999 mls/hr ONETIME ONE Administration Methylprednisolone Sodium Succinate 125 mg 10/24/20 01:11 10/24/20 01:18 Solu-Medrol IVPUSH 10/24/20 01:12 125 mg ONETIME ONE Administration Prednisone 20 mg 10/24/20 08:26 10/24/20 09:22 Prednisone PO 10/24/20 08:27 20 mg DAILY [facility] Administration - Radiology Interpretation Free Text/Narrative:: Chest x-ray per radiology shows progressive bilateral consolidations. Low lung volumes. This is a chest x-ray that was compared to a previous 1 of 11-22-2018. This really appears the sequelae of Covid pneumonia on my extemporaneously view. - Re-Assessments/Exams Free Text/Narrative Re-Assessment/Exam: 10/23/20 Patient does get quite short of breath with any physical exertion in the emergency department. He is not requiring any oxygen. He has a small amount of audible wheezing. A nebulizer was given of DuoNeb with resolution of his shortness of breath by exam but he still had some subjective shortness of breath. Labs were drawn. Blood cultures are pending. His Covid test as we know he just recently got out of quarantine. His chest x-ray is concerning for Covid pneumonia. Laboratory evaluation with a WBC of 5.4 and a hemoglobin of 17.6 concerning for hemoconcentration and dehydration. PT 11.4 INR 1.1 and a D-dimer 1.72 which is most likely from his Covid and I am unconcerned of a pulmonary embolism without any pain or hypoxia at this time. Creatinine is 1.8 with a BUN of 20. Reviewing his [place] chart it appears that his creatinine at baseline is about 1.2. Sodium 137 potassium 3.6 glucose 129, lactic acid 2.1. Troponin less than 0.017. CRP 19.0 which could be related to not only the acute viral Covid pneumonia but also has chronic history of vasculitis with nephropathy. Urinalysis is noninfectious appearing although he has quite a bit of RBCs and this is this is most likely due to his vasculitis that has affected his kidneys and he chronically has blood in his urine. The patient was given a liter of LR in the emergency department due to the acute kidney injury as well as my concerns for dehydration with his elevated hemoglobin. I also gave him 125 mg of Solu-Medrol. This patient is chronically on prednisone 10 mg p.o. daily for his vasculitis. He really is still quite short of breath and lives at home alone and with his acute kidney injury I think it is important for us to make sure that he is well-hydrated we see improvement of his kidney function and determine his management for home. We will admit him under my service for observation and serial lab following. He is comfortable with this plan his questions are answered. Departure - Departure Time of Disposition: 00:45 Disposition: Refer to Observation Clinical Impression: Chronic steroid use, Vasculitis, Shortness of breath, Generalized weakness, Dehydration Acute kidney failure Qualifiers: Acute renal failure type: unspecified Qualified Code(s): N17.9 - Acute kidney failure, unspecified - Discharge Information Sepsis Event Note (ED) - Evaluation Sepsis Screening Result: No Definite Risk - Problem List & Annotations (1) Acute kidney failure SNOMED Code(s): 65384076 Code(s): N17.9 - ACUTE KIDNEY FAILURE, UNSPECIFIED Status: Acute Current Visit: Yes Qualifiers: Acute renal failure type: unspecified Qualified Code(s): N17.9 - Acute kidney failure, unspecified (2) Dehydration SNOMED Code(s): 49448512 Code(s): E86.0 - DEHYDRATION Status: Acute Current Visit: Yes (3) Generalized weakness SNOMED Code(s): 51491652 Code(s): R53.1 - WEAKNESS Status: Acute Current Visit: Yes (4) Shortness of breath SNOMED Code(s): 079715178 Code(s): R06.02 - SHORTNESS OF BREATH Status: Acute Current Visit: Yes (5) Vasculitis SNOMED Code(s): 54856151 Code(s): I77.6 - ARTERITIS, UNSPECIFIED Status: Acute Current Visit: Yes Annotation/Comment:: Gabriela's (6) Chronic steroid use SNOMED Code(s): 162297503 Code(s): WJR1744 - Status: Chronic Current Visit: Yes - Problem List Review Problem List Initiated/Reviewed/Updated: Yes - My Orders Last 24 Hours: My Active Orders 10/23/20 22:05 RT Aerosol Therapy [RC] .PRN 10/23/20 22:17 EKG Documentation Completion [RC] STAT 10/23/20 23:42 Sodium Chloride 0.9% [Saline Flush] 10 ml FLUSH ASDIRECTED PRN Peripheral IV Insertion Adult [OM.PC] Stat - Assessment/Plan Admission H&P: Please use this note as an admission H&P Last 24 Hours: My Active Orders 10/23/20 22:05 RT Aerosol Therapy [RC] .PRN 10/23/20 22:17 EKG Documentation Completion [RC] STAT 10/23/20 23:42 Sodium Chloride 0.9% [Saline Flush] 10 ml FLUSH ASDIRECTED PRN Peripheral IV Insertion Adult [OM.PC] Stat Assessment:: Essman/plan. Admit under my service for observation and hydration for the below listed problems. Expect discharge most likely in 24 hours. 1. Shortness of breath. He recently was diagnosed with Covid he is outside of the quarantine time. His chest x-ray shows a sequelae of Covid pneumonia. A procalcitonin is pending for bacterial in nature although I think that it is unlikely as he has a normal white blood cell count as well. Blood cultures are pending. We will increase his prednisone to 40 mg daily and slowly titrate him down as he is on chronic steroids for vasculitis. We will also use DuoNebs as needed. I think an aspect of his shortness of breath could be due to the relation of his dehydration. #2 acute kidney injury superimposed over chronic renal failure stage III. Baseline creatinine of 1.2 today's creatinine is 1.8. He was given a liter of LR in the emergency department. We will hydrate him with lactated Ringer's at 200 mils an hour overnight. We will watch him closely for intake output as well as overhydration. And daily labs. #3 generalized weakness. This is most likely the sequelae which is becoming quite prevalent and predominant with patients with Covid that have long-term generalized weakness. He has clearly had poor oral intake and dehydration. He is very steady on his feet at this time. We will not have physical therapy see him at this time as I feel that it is more metabolic in nature is weakness. He will be up with assist and we will reevaluate as needed. #4 dehydration. Due to poor oral intake in the presence of post Covid sequelae. We will continue hydration with LR as above. Daily labs with daily weights. He can also push oral fluids. #5 vasculitis chronic. He has baseline prednisone for his vasculitis is 10 mg daily. We will increase him to 40mg for his acute shortness of breath with a Covid pneumonia sequelae. And slowly titrate off after he is discharged home. #6 chronic steroid usage causing diabetes. Prednisone as above discussed. We will also watch his blood sugars 4 times daily. We will continue his Lantus as well as his Metformin. VTE. Short stay teds. Sepsis no white blood cell count elevation. Blood cultures are pending. Procalcitonin pending. No fevers. CRP elevation is most likely due to the inflammatory process of the Covid pneumonia as well as a mixed component of the vasculitis. We will continue to monitor. Code status: Full. We will continue all his other regular home medications as well.
[2020-10-23 23:23] LABS: CHLORIDE,CL 102 mmol/L (98-107); SODIUM,NA 137 mmol/L (136-145)
[2020-10-23 23:25] LABS: PTT,PARTIAL THROMBOPLSTIN TIME 28.5 SEC (25.6-32.8)
[2020-10-23 23:38] LABS: ANION GAP 16.6 mmol/L (10-20)
[2020-10-23] MEDS ORDERED: Sodium Chloride 0.9% 10 ML Syringe FLUSH PRN (23:42)
[2020-10-23] MEDS ORDERED: Lactated Ringers 1,000 ML IV ONE (23:42)
[2020-10-24] MEDS ORDERED: methylPREDNISolone Sodium Succinate 125 MG/2 ML SDV IVPUSH ONE (01:11)
[2020-10-24] MEDS ORDERED: Albuterol/Ipratropium 3.0-0.5 MG/3 ML Neb Soln NEB PRN (01:20)
[2020-10-24] MEDS: Lactated Ringers 1,000 ML IV SCH ×3 (02:55→12:47)
--- NOTE | 2020-10-24 07:33 | CR ---
[id number] RAD/RAD Chest PA And Lateral EXAM: RAD Chest PA And Lateral INDICATION: CHEST PAIN, SHORTNESS OF BREATH COMPARISON: November 2018. DISCUSSION: Cardiomediastinal silhouette is unchanged from the prior examination. Scattered areas of parenchymal opacification in both lungs. No pleural effusion or pneumothorax. IMPRESSION: Parenchymal opacities in both lungs. Appearance is somewhat nonspecific, however can be seen with pneumonia including sequela of COVID 19. Enrique Ortiz MD 10/24/20 0733 Thank you for allowing us to participate in the care of your patient.
[2020-10-24] MEDS ORDERED: Glucagon,Human Recombinant 1 MG Vial IM PRN (08:23)
[2020-10-24] MEDS ORDERED: 50% Dextrose in Water 50 ML Syringe IV PRN (08:23)
[2020-10-24] MEDS ORDERED: predniSONE 20 MG Tab PO STA (08:26)
[2020-10-24] MEDS ORDERED: metFORMIN 500 MG Tab PO SCH (08:30)
[2020-10-24] MEDS ORDERED: Lisinopril 5 MG Tab PO SCH (08:30)
[2020-10-24] MEDS ORDERED: Potassium Chloride 20 MEQ Tab.ER PO SCH (08:30)
[2020-10-24] MEDS ORDERED: Ergocalciferol (Vitamin D2) 1.25 MG Cap PO SCH (08:30)
[2020-10-24] MEDS ORDERED: Aspirin 81 MG Tab.EC PO SCH (08:30)
[2020-10-24] MEDS ORDERED: Insulin Glarg,Human.Rec.Analog 100 Unit/ML SUBCUT SCH (08:30)
[2020-10-24] MEDS ORDERED: Metoprolol Tartrate 25 MG Tab PO SCH (08:30)
[2020-10-24 09:40] LABS: ANION GAP 14.8 mmol/L (10-20)
[2020-10-24] MEDS ORDERED: Albuterol HFA 18 Gm Inhaler INH PRN (13:19)
[2020-10-24] MEDS ORDERED: Albuterol HFA 18 Gm Inhaler INH STA (13:22)
--- NOTE | 2020-10-24 13:22 | PCM.DCSUM1 ---
Discharge Summary - Hospital Course Free Text/Narrative:: Assessment/plan. Discharge home. 1. Shortness of breath. He recently was diagnosed with Covid he is outside of the quarantine time. He has had absolutely no shortness of breath during the night. He has not received any nebulizers. He is able to ambulate without becoming short of breath like he did upon arrival. He has been receiving his prednisone 40 mg p.o. #2 acute kidney injury superimposed over chronic renal failure stage III. Baseline creatinine of 1.2 today's creatinine is 1.5. He has been tolerating oral fluids quite well. He has been urinating. His creatinine is returning back to baseline. #3 generalized weakness. This is resolved. He has been ambulatory and he feels much more steady on his feet. #4 dehydration. resolved had good urinary output. No signs of fluid overload. #5 vasculitis chronic. unchanged. #6 chronic steroid usage causing diabetes. Blood sugars a little high but not terrible. VTE. Short stay teds. Sepsis no white blood cell count elevation. Blood cultures are pending. Procalcitonin pending. No fevers. CRP elevation is most likely due to the inflammatory process of the Covid pneumonia as well as a mixed component of the vasculitis. We will continue to monitor. Code status: Full. Discharge home. See home discharge instructions for plan at home. HPI Initial Comments: atient comes emergency department today with complaints of increasing shortness of breath. This patient just finished his 10-day quarantine for Covid. He has had increasing fatigue weakness and shortness of breath. He is even short of breath at rest. He has a continued cough that is dry hacking nonproductive. He has no pain in his chest. No syncope no palpitations. He has had an intermittent fever over the past couple of days. No abdominal pain nausea or vomiting. Intermittent diarrhea. He has had good oral intake of fluids and solids according to the patient. He does have a history of vasculitis for which she is on chronic prednisone for. 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 No pain in his calf or his thighs. His shortness of breath is slowly gotten worse over the past couple of days he did not suddenly become short of breath. He does not smoke. - Discharge Data Discharge Date: 10/24/20 Discharge Disposition: Home, Self-Care 01 Condition: Good - Referral to Home Health Primary Care Physician: Edda Ellison, DO - Discharge Diagnosis/Problem(s) (1) Acute kidney failure SNOMED Code(s): 57111676 ICD Code: N17.9 - ACUTE KIDNEY FAILURE, UNSPECIFIED Status: Acute Qualifiers: Acute renal failure type: unspecified Qualified Code(s): N17.9 - Acute kidney failure, unspecified (2) Dehydration SNOMED Code(s): 77465442 ICD Code: E86.0 - DEHYDRATION Status: Acute (3) Generalized weakness SNOMED Code(s): 62599308 ICD Code: R53.1 - WEAKNESS Status: Acute (4) Shortness of breath SNOMED Code(s): 161248605 ICD Code: R06.02 - SHORTNESS OF BREATH Status: Acute (5) Vasculitis SNOMED Code(s): 91238992 ICD Code: I77.6 - ARTERITIS, UNSPECIFIED Status: Acute Problem Details: Gabriela's (6) Chronic steroid use SNOMED Code(s): 299658389 ICD Code: [id number] - Status: Chronic - Patient Summary/Data Hospital Course: The patient was admitted into the hospital under observation overnight due to concerns of weakness acute kidney injury dehydration and shortness of breath. His initial creatinine was 1.8 up from his baseline of 1.2. He received fluid boluses and hydration throughout the night as well as oral hydration and his creatinine is improved to 1.5. He has been eating and drinking much more than he is at home. He is able to ambulate without becoming short of breath he does not have the complaints of weakness. He has not required any inhalers during the night for his shortness of breath as he did upon arrival. He really feels much better. He has a good appetite. He has been ambulating and feels much better. He was started on prednisone due to the concerns of shortness of breath and the post Covid pneumonia sequelae. His procalcitonin was negative and I am unconcerned for a secondary bacterial infection for pneumonia. Much better today. We will discharge him home. Highly important for him to hydrate himself well at home and make sure that he is eating regular meals. We will send him home with an albuterol inhaler if he needs it for shortness of breath. We will also use prednisone 40 mg for a total of 3 days, 20 mg for 3 days, 10 mg for continuous for his chronic vasculitis. - Patient Instructions Diet: Heart Healthy Diet Fluid Restriction: Push oral fluids as much as possible. Activity: As Tolerated Driving: May Drive Today Other/Special Instructions: You must be making sure you are pushing oral fluids. If you are not urinating every 2 hrs a good amount you are not drinking enough fluids. Water electrolyte containing materials such as Gatorade and or Powerade. Albuterol inhaler, MDI, 2 puffs every 4 hrs as needed for shortness of breath or difficulty breathing. Supplied from the hospital today. Increase your prednisone to 40mg a day for the next 2 days starting tomorrow. then 20mg a day for 3 days and then back to 10mg a day chronically. Use your home medications for this. Watch your blood sugars over the next few days. Recheck if new or worsening symptoms. Follow up with Dr. Erica Ellison in the clinic on monday as previously scheduled. - Discharge Plan *PRESCRIPTION DRUG MONITORING PROGRAM REVIEWED*: Not Applicable *COPY OF PRESCRIPTION DRUG MONITORING REPORT IN PATIENT ILEANA: Not Applicable Home Medications: Home Meds Omeprazole [Prilosec] 40 mg PO BIDAC 01/20/14 [History] Aspirin [Low Dose Aspirin EC] 81 mg PO DAILY 01/28/14 [History] Calcium Carbonate/Vitamin D3 [Calcium 500-Vit D3 200 Caplet] 1 tab PO BIDMEALS 10/22/14 [History] Ergocalciferol (Vitamin D2) [Vitamin D2] 50,000 unit PO ASDIRECTED 10/22/14 [History] Fluticasone Propionate [Flonase] 1 spray GRAHAM BID PRN 11/20/14 [History] metFORMIN HCl [Metformin HCl] 1,000 mg PO BID 11/21/15 [History] Alendronate Sodium [Fosamax] 70 mg PO Q7D 07/04/17 [History] Insulin Glarg,Human.Rec.Analog [Lantus] 15 unit SQ DAILY 07/31/17 [History] Lisinopril 5 mg PO DAILY 11/22/18 [History] Sulfamethoxazole/Trimethoprim [Bactrim Ds Tablet] 1 tab PO ASDIRECTED 11/23/18 [History] Pravastatin [Pravachol] 20 mg PO BEDTIME 02/13/19 [History] azaTHIOprine [Imuran] 50 mg PO DAILY 02/13/19 [History] predniSONE 10 mg PO DAILY 02/13/19 [History] Albuterol Sulfate [Albuterol Sulfate Hfa] 1 puff PO QID PRN 10/24/20 [History] Ketoconazole [Nizoral 2% Crm] 1 applic TOP DAILY PRN 10/24/20 [History] Metoprolol Tartrate [Lopressor] 25 mg PO BID 10/24/20 [History] Potassium Chloride [Klor-Con M20] 20 meq PO BID 10/24/20 [History] Patient Handouts: Acute Kidney Injury, Adult, Shortness of Breath, Adult, [id number] Forms: ED Department Discharge Referrals: Edda Ellison, [Primary Care Provider] - - Discharge Summary/Plan Comment DC Time >30 min.: Yes - General Info Date of Service: 10/24/20 Admission Dx/Problem (Free Text: Weak dizzy [place] Post covid Subjective Update: The patient slept very well during the night. He feels much better today. He is ambulatory about his room. He has urinated multiple times. He has no weakness dizziness lightheadedness. He has not had any shortness of breath during the night. He has not required any nebulizer treatment. He has had no chest pain. He has had no palpitations or syncope. No paresthesias of his upper or lower extremities. No abdominal pain. No nausea or vomiting. No hematuria dysuria or urinary frequency. No diarrhea. He has been able to eat and drink appropriately he feels much better and he is ready to go home. Functional Status: Reports: Pain Controlled - Patient Data Vitals - Most Recent: Last Vital Signs Temp 97.3 F 10/24/20 09:15 Pulse 62 10/24/20 09:21 Resp 18 10/24/20 09:15 BP 116/73 10/24/20 09:22 Pulse Ox 94 L 10/24/20 09:15 Weight - Most Recent: 312 lb 8 oz I&O - Last 24 hours: Intake & Output 10/23/20 10/24/20 10/24/20 22:59 06:59 14:59 Intake Total 1006 620 Output Total 400 Balance 1006 220 Lab Results - Last 24 hrs: Laboratory Results - last 24 hr 10/23/20 10/23/20 10/23/20 Range/Units 22:44 22:44 22:44 WBC 5.4 (4.0-10.0) x10^3/uL RBC 6.16 H (4.5-6.0) x10^6/uL Hgb 17.6 D (14.0-18.0) g/dL Hct 50.6 (40.0-52.0) % MCV 82.1 (78.0-93.0) fL MCH 28.6 (26.0-32.0) pg MCHC 34.8 (32.0-36.0) g/dL RDW Coeff of Moy 14.1 (10.0-15.0) % Plt Count 126 L D (130-400) x10^3/uL Neut % (Auto) 72.6 (50.0-80.0) % Lymph % (Auto) 10.8 L (25.0-50.0) % [place] % (Auto) 16.6 H (2.0-11.0) % Eos % (Auto) 0.0 (0.0-4.0) % Baso % (Auto) 0.0 L (0.2-1.2) % PT 11.4 (9.5-12.3) SEC INR 1.1 L (2.0-3.5) APTT 28.5 (25.6-32.8) SEC D-Dimer, Quantitative 1.72 H (<=0.58) mg/LFEU Sodium 137 (136-145) mmol/L Potassium 3.6 (3.5-5.1) mmol/L Chloride 102 (98-107) mmol/L Carbon Dioxide 22 (21-32) mmol/L Anion Gap 16.6 (10-20) mmol/L BUN 20 H (7-18) mg/dL Creatinine 1.8 H (0.70-1.30) mg/dL Est Cr Clr Drug Dosing 46.85 mL/min Estimated GFR (MDRD) 38 Glucose 129 H (74-106) mg/dL POC Glucose (74-106) mg/dL Lactic Acid (0.4-2.0) mmol/L Calcium 8.6 (8.5-10.1) mg/dL Corrected Calcium 9.40 (8.5-10.1) mg/dL Total Bilirubin 1.0 (0.2-1.0) mg/dL AST 46 H (15-37) U/L ALT 30 (16-63) U/L Alkaline Phosphatase 135 H (46-116) U/L Troponin I < 0.017 (<=0.056) ng/mL C-Reactive Protein 19.0 H (<=0.9) mg/dL Total Protein 6.7 (6.4-8.2) g/dL Albumin 3.0 L (3.4-5.0) g/dL Globulin 3.7 Albumin/Globulin Ratio 0.81 Urine Color (YELLOW) Urine Appearance (CLEAR) Urine pH (5.0-8.0) Ur Specific [place] Urine Protein (NEGATIVE) mg/dL Urine Glucose (UA) (NEGATIVE) mg/dL Urine Ketones (NEGATIVE) mg/dL Urine Occult Blood (NEGATIVE) Urine Nitrite (NEGATIVE) Urine Bilirubin (NEGATIVE) Urine Urobilinogen (0.2) EU/dL Ur Leukocyte Esterase (NEGATIVE) Urine RBC (NOT SEEN) /HPF Urine WBC (NOT SEEN) /HPF Ur Squamous Epith Cells (NEGATIVE) /HPF Urine Bacteria (NEGATIVE) /HPF 10/23/20 10/24/20 10/24/20 Range/Units 22:44 06:17 07:50 WBC 3.4 L (4.0-10.0) x10^3/uL RBC 5.39 (4.5-6.0) x10^6/uL Hgb 15.5 D (14.0-18.0) g/dL Hct 44.3 (40.0-52.0) % MCV 82.2 (78.0-93.0) fL MCH 28.8 (26.0-32.0) pg MCHC 35.0 (32.0-36.0) g/dL RDW Coeff of Moy 13.7 (10.0-15.0) % Plt Count 128 L (130-400) x10^3/uL Neut % (Auto) 93.6 H (50.0-80.0) % Lymph % (Auto) 4.4 L (25.0-50.0) % [place] % (Auto) 2.0 (2.0-11.0) % Eos % (Auto) 0.0 (0.0-4.0) % Baso % (Auto) 0.0 L (0.2-1.2) % PT (9.5-12.3) SEC INR (2.0-3.5) APTT (25.6-32.8) SEC D-Dimer, Quantitative (<=0.58) mg/LFEU Sodium (136-145) mmol/L Potassium (3.5-5.1) mmol/L Chloride (98-107) mmol/L Carbon Dioxide (21-32) mmol/L Anion Gap (10-20) mmol/L BUN (7-18) mg/dL Creatinine (0.70-1.30) mg/dL Est Cr Clr Drug Dosing mL/min Estimated GFR (MDRD) Glucose (74-106) mg/dL POC Glucose 205 H (74-106) mg/dL Lactic Acid 2.1 H* (0.4-2.0) mmol/L Calcium (8.5-10.1) mg/dL Corrected Calcium (8.5-10.1) mg/dL Total Bilirubin (0.2-1.0) mg/dL AST (15-37) U/L ALT (16-63) U/L Alkaline Phosphatase (46-116) U/L Troponin I (<=0.056) ng/mL C-Reactive Protein (<=0.9) mg/dL Total Protein (6.4-8.2) g/dL Albumin (3.4-5.0) g/dL Globulin Albumin/Globulin Ratio Urine Color (YELLOW) Urine Appearance (CLEAR) Urine pH (5.0-8.0) Ur Specific [place] Urine Protein (NEGATIVE) mg/dL Urine Glucose (UA) (NEGATIVE) mg/dL Urine Ketones (NEGATIVE) mg/dL Urine Occult Blood (NEGATIVE) Urine Nitrite (NEGATIVE) Urine Bilirubin (NEGATIVE) Urine Urobilinogen (0.2) EU/dL Ur Leukocyte Esterase (NEGATIVE) Urine RBC (NOT SEEN) /HPF Urine WBC (NOT SEEN) /HPF Ur Squamous Epith Cells (NEGATIVE) /HPF Urine Bacteria (NEGATIVE) /HPF 10/24/20 10/24/20 10/24/20 Range/Units 07:50 07:50 07:55 WBC (4.0-10.0) x10^3/uL RBC (4.5-6.0) x10^6/uL Hgb (14.0-18.0) g/dL Hct (40.0-52.0) % MCV (78.0-93.0) fL MCH (26.0-32.0) pg MCHC (32.0-36.0) g/dL RDW Coeff of Moy (10.0-15.0) % Plt Count (130-400) x10^3/uL Neut % (Auto) (50.0-80.0) % Lymph % (Auto) (25.0-50.0) % [place] % (Auto) (2.0-11.0) % Eos % (Auto) (0.0-4.0) % Baso % (Auto) (0.2-1.2) % PT (9.5-12.3) SEC INR (2.0-3.5) APTT (25.6-32.8) SEC D-Dimer, Quantitative (<=0.58) mg/LFEU Sodium 133 L (136-145) mmol/L Potassium 3.8 (3.5-5.1) mmol/L Chloride 103 (98-107) mmol/L Carbon Dioxide 19 L (21-32) mmol/L Anion Gap 14.8 (10-20) mmol/L BUN 19 H (7-18) mg/dL Creatinine 1.5 H (0.70-1.30) mg/dL Est Cr Clr Drug Dosing 56.23 mL/min Estimated GFR (MDRD) 47 Glucose 251 H (74-106) mg/dL POC Glucose (74-106) mg/dL Lactic Acid 1.7 (0.4-2.0) mmol/L Calcium 8.0 L (8.5-10.1) mg/dL Corrected Calcium (8.5-10.1) mg/dL Total Bilirubin (0.2-1.0) mg/dL AST (15-37) U/L ALT (16-63) U/L Alkaline Phosphatase (46-116) U/L Troponin I (<=0.056) ng/mL C-Reactive Protein 15.9 H (<=0.9) mg/dL Total Protein (6.4-8.2) g/dL Albumin (3.4-5.0) g/dL Globulin Albumin/Globulin Ratio Urine Color Dark yellow H (YELLOW) Urine Appearance Clear (CLEAR) Urine pH 6.0 (5.0-8.0) Ur Specific [place] 1.020 Urine Protein 100 H (NEGATIVE) mg/dL Urine Glucose (UA) Negative (NEGATIVE) mg/dL Urine Ketones Negative (NEGATIVE) mg/dL Urine Occult Blood Moderate H (NEGATIVE) Urine Nitrite Negative (NEGATIVE) Urine Bilirubin Negative (NEGATIVE) Urine Urobilinogen 0.2 (0.2) EU/dL Ur Leukocyte Esterase Negative (NEGATIVE) Urine RBC 30-40 H (NOT SEEN) /HPF Urine WBC 0-5 (NOT SEEN) /HPF Ur Squamous Epith Cells Rare (NEGATIVE) /HPF Urine Bacteria Rare (NEGATIVE) /HPF 10/24/20 10/24/20 Range/Units 09:14 11:04 WBC (4.0-10.0) x10^3/uL RBC (4.5-6.0) x10^6/uL Hgb (14.0-18.0) g/dL Hct (40.0-52.0) % MCV (78.0-93.0) fL MCH (26.0-32.0) pg MCHC (32.0-36.0) g/dL RDW Coeff of Moy (10.0-15.0) % Plt Count (130-400) x10^3/uL Neut % (Auto) (50.0-80.0) % Lymph % (Auto) (25.0-50.0) % [place] % (Auto) (2.0-11.0) % Eos % (Auto) (0.0-4.0) % Baso % (Auto) (0.2-1.2) % PT (9.5-12.3) SEC INR (2.0-3.5) APTT (25.6-32.8) SEC D-Dimer, Quantitative (<=0.58) mg/LFEU Sodium (136-145) mmol/L Potassium (3.5-5.1) mmol/L Chloride (98-107) mmol/L Carbon Dioxide (21-32) mmol/L Anion Gap (10-20) mmol/L BUN (7-18) mg/dL Creatinine (0.70-1.30) mg/dL Est Cr Clr Drug Dosing mL/min Estimated GFR (MDRD) Glucose (74-106) mg/dL POC Glucose 266 H 237 H (74-106) mg/dL Lactic Acid (0.4-2.0) mmol/L Calcium (8.5-10.1) mg/dL Corrected Calcium (8.5-10.1) mg/dL Total Bilirubin (0.2-1.0) mg/dL AST (15-37) U/L ALT (16-63) U/L Alkaline Phosphatase (46-116) U/L Troponin I (<=0.056) ng/mL C-Reactive Protein (<=0.9) mg/dL Total Protein (6.4-8.2) g/dL Albumin (3.4-5.0) g/dL Globulin Albumin/Globulin Ratio Urine Color (YELLOW) Urine Appearance (CLEAR) Urine pH (5.0-8.0) Ur Specific [place] Urine Protein (NEGATIVE) mg/dL Urine Glucose (UA) (NEGATIVE) mg/dL Urine Ketones (NEGATIVE) mg/dL Urine Occult Blood (NEGATIVE) Urine Nitrite (NEGATIVE) Urine Bilirubin (NEGATIVE) Urine Urobilinogen (0.2) EU/dL Ur Leukocyte Esterase (NEGATIVE) Urine RBC (NOT SEEN) /HPF Urine WBC (NOT SEEN) /HPF Ur Squamous Epith Cells (NEGATIVE) /HPF Urine Bacteria (NEGATIVE) /HPF Med Orders - Current: Current Medications Albuterol/Ipratropium (Duoneb 3.0-0.5 Mg/3 Ml) 3 ml NEB Q4HRRT PRN PRN Reason: Shortness of Breath Alendronate Sodium (Fosamax) 70 mg PO Q7D@0600 [facility] Aspirin (Halfprin) 81 mg PO DAILY [facility] Last Admin: 10/24/20 09:22 Dose: 81 mg Documented by: Azathioprine (Imuran) 50 mg PO DAILY [facility] Last Admin: 10/24/20 09:21 Dose: 50 mg Documented by: Calcium Carbonate (Calcium Carbonate/Vitamin D 1250 Mg-200 Unit) 1 tab PO BIDMEALS [facility] Dextrose/Water (Dextrose 50% In Water) 50 ml IV ASDIRECTED PRN PRN Reason: Hypoglycemia Ergocalciferol (Vitamin D2) 1.25 mg PO MoFr@0800 [facility] Last Admin: 10/24/20 09:22 Dose: 1.25 mg Documented by: Glucagon (Glucagen) 1 mg IM ASDIRECTED PRN PRN Reason: Hypoglycemia Lactated Ringer's (Ringers, Lactated) 1,000 mls @ 200 mls/hr IV ASDIRECTED [facility] Last Admin: 10/24/20 12:47 Dose: 200 mls/hr Documented by: Insulin Glargine (Lantus) 15 unit SUBCUT DAILY [facility] Last Admin: 10/24/20 09:23 Dose: 15 units Documented by: Lisinopril (Prinivil) 5 mg PO DAILY [facility] Last Admin: 10/24/20 09:22 Dose: 5 mg Documented by: Metformin HCl (Glucophage) 1,000 mg PO BID [facility] Last Admin: 10/24/20 09:23 Dose: 1,000 mg Documented by: Metoprolol Tartrate (Lopressor) 25 mg PO BID [facility] Last Admin: 10/24/20 09:21 Dose: 25 mg Documented by: Omeprazole (Omeprazole) 40 mg PO BIDAC [facility] Potassium Chloride (Klor-Con M20) 20 meq PO BID [facility] Last Admin: 10/24/20 09:22 Dose: 20 meq Documented by: Simvastatin (Zocor) 10 mg PO BEDTIME [facility] Sodium Chloride (Saline Flush) 10 ml FLUSH ASDIRECTED PRN PRN Reason: Keep Vein Open Discontinued Medications Albuterol/Ipratropium (Duoneb 3.0-0.5 Mg/3 Ml) 3 ml NEB ONETIME ONE Stop: 10/23/20 22:06 Last Admin: 10/23/20 22:22 Dose: 3 ml Documented by: Lactated Ringer's (Ringers, Lactated) 1,000 mls @ 999 mls/hr IV ONETIME ONE Stop: 10/24/20 00:42 Last Admin: 10/24/20 00:30 Dose: 999 mls/hr Documented by: Methylprednisolone Sodium Succinate (Solu-Medrol) 125 mg IVPUSH ONETIME ONE Stop: 10/24/20 01:12 Last Admin: 10/24/20 01:18 Dose: 125 mg Documented by: Prednisone (Prednisone) 20 mg PO DAILY STA Stop: 10/24/20 08:27 Last Admin: 10/24/20 09:22 Dose: 20 mg Documented by: Comments:: This patient really appears quite well. He is much more alert active and appears to be feeling much better. There is no respiratory distress. He is able to speak in full sentences. - Exam General: Reports: Alert, Oriented HEENT: Reports: Pupils Equal, Pupils Reactive Neck: Reports: Supple Lungs: Reports: Clear to Auscultation, Normal Respiratory Effort Cardiovascular: Reports: Regular Rate, Regular Rhythm GI/Abdominal Exam: Normal Bowel Sounds, Soft, Non-Tender (Male) Exam: Deferred Rectal (Males) Exam: Deferred Back Exam: Reports: Normal Inspection, Full Range of Motion Extremities: Normal Inspection, Normal Range of Motion, Non-Tender, No Pedal Edema, Normal Capillary Refill Skin: Reports: Warm, Dry, Intact Neurological: Reports: No New Focal Deficit Psy/Mental Status: Reports: Alert, Normal Affect, Normal Mood
[2020-10-24 13:49] VITALS: BP 128/73; PULSE 66
[2020-10-24] MEDS ORDERED: Omeprazole 20 MG Cap.CR PO SCH (17:00)
[2020-10-24] MEDS ORDERED: Calcium Carbonate/Vitamin D3 1250 MG-200 Unit Tab PO SCH (18:00)
[2020-10-24] MEDS ORDERED: Simvastatin 10 MG Tab PO SCH (20:00)
[2020-10-25] MEDS ORDERED: Alendronate 70 MG Tab PO SCH (06:00)
== END 2020-10-24 14:10 | disposition home or self-care (01) ==
LOC: VM.ED 21:22 → SUPCPDRO 21:22 → INTOOBSV 10-24 00:40 → VM.MS 10-24 00:40 → UNDOADMIN 10-24 00:56 → VM.MS 10-24 00:56
PROVIDERS: ADMIT Nurse Practitioner Family; ATTEND Nurse Practitioner Family
DX: R06.02 Shortness of breath (principal); R53.1 Weakness; I48.91 Unspecified atrial fibrillation; I25.10 Atherosclerotic heart disease of native coronary artery without angina pectoris; E78.00 Pure hypercholesterolemia, unspecified; G47.30 Sleep apnea, unspecified; N17.9 Acute kidney failure, unspecified; E66.9 Obesity, unspecified; I12.9 Hypertensive chronic kidney disease with stage 1 through stage 4 chronic kidney disease, or unspecified chronic kidney disease; E11.22 Type 2 diabetes mellitus with diabetic chronic kidney disease; N18.9 Chronic kidney disease, unspecified; E86.0 Dehydration; I77.6 Arteritis, unspecified; Z79.899 Other long term (current) drug therapy; Z79.82 Long term (current) use of aspirin; Z95.0 Presence of cardiac pacemaker; Z68.41 Body mass index [BMI] 40.0-44.9, adult
CPT/HCPCS: 36415; 71046; 80048; 80053; 81001; 82962; 83605; 84484; 85025; 85379; 85610; 85730; 86140; 93005; 96374; 99236; 99285-25; A9270-GY; G0378; J1815-GY; J2930; J7120; J7500; J7512; J7620-GY

== ENCOUNTER 2020-10-27 16:23 | Inpatient (IN) | payer OTHER ==
[2020-10-27] MEDS ORDERED: Potassium Chloride Riders 20 MEQ in Premix Bag 1 BAG IV ONE (16:53)
--- NOTE | 2020-10-27 17:13 | CR ---
[id number] RAD/RAD Chest PA or AP 1V EXAM: FRONTAL CHEST INDICATION: SHORTNESS OF BREATH. COMPARISON: October 23, 2020. DISCUSSION: Patchy multifocal bilateral infiltrates similar to the previous examination and most consistent with infection including potential Covid 19. The lungs are mildly hypoinflated. Left subclavian approach pacemaker leads RA and RV. Normal heart size. IMPRESSION: 1. Patchy bilateral infiltrates are most suggestive of infection including potential Covid 19. Nic Banegas MD 10/27/20 [id number] Thank you for allowing us to participate in the care of your patient.
[2020-10-27] MEDS ORDERED: Enoxaparin 150 MG/1 ML Syringe SUBCUT ONE (17:56)
[2020-10-27] MEDS ORDERED: Glucagon,Human Recombinant 1 MG Vial IM PRN (18:09)
[2020-10-27] MEDS: Potassium Chloride 10 MEQ Tab.ER PO SCH (18:09)
[2020-10-27] MEDS ORDERED: 50% Dextrose in Water 50 ML Syringe IV PRN (18:09)
[2020-10-27] MEDS ORDERED: Albuterol HFA 18 Gm Inhaler INH PRN (18:09)
[2020-10-27] MEDS: predniSONE 10 MG Tab PO SCH (20:04)
[2020-10-27] MEDS: Metoprolol Tartrate 25 MG Tab PO SCH (20:04)
[2020-10-27] MEDS: Simvastatin 10 MG Tab PO SCH (20:08)
[2020-10-27] MEDS ORDERED: Iopamidol 612 MG/ML 100 ML Bottle IVPUSH ONE ×2 (20:19→20:31)
[2020-10-27] MEDS ORDERED: Acetaminophen 325 MG Tab PO PRN (20:20)
[2020-10-27] MEDS: Iopamidol 612 MG/ML 100 ML Bottle IV ONE ×2 (20:37→20:41)
--- NOTE | 2020-10-27 20:53 | HP ---
CHIEF COMPLAINT: Shortness of breath and chest discomfort. HISTORY OF PRESENT ILLNESS: This is a 64-year-old male presenting to the clinic for a hospital followup from his observation admit on 10/25 for shortness of breath and fatigue post COVID. The patient at that time was dehydrated. He has been drinking okay at home, but still just feels very fatigued. He is still coughing a dry cough. No fever, but chills last night. His original symptoms started on the when he was noted to have 100.1 fever at his doctor appointment. He tested positive the next day and just has not recovered. He states that his chest pain is described as uncomfortable, but it does not matter if he is sitting or resting or active, but when he walked up in the front of the clinic he needed to almost slump over and the nurse had to come up and get him. He is in a wheelchair. Otherwise, the patient lives independently at home by himself. He has a very complicated medical history with vasculitis. His last Rituxan infusion was in April. ALLERGIES: None. MEDICATION LIST: Metoprolol 25 mg twice daily. He was placed on a prednisone taper on his recent discharge, but otherwise should be currently on at least 10 mg daily from his vasculitis, but in his current taper dosing, he would be at 20 mg daily, Imuran 50 mg daily, Bactrim 1 tablet on Monday, Monday, Monday, albuterol inhaler as needed for wheezing, Fosamax 70 mg weekly, Flonase as needed, Lantus 15 units daily, lisinopril 5 mg daily, metformin 1000 mg twice daily, Prilosec 40 mg twice daily, potassium 20 mEq twice daily, Pravachol 20 mg at bedtime, vitamin D 50,000 units by mouth on Mondays and Fridays, ketoconazole cream as needed, calcium and vitamin D, aspirin 81 mg daily. MEDICAL HISTORY: Includes history of alopecia since age 5, history of acute renal failure, but creatinine on recent hospital stay was 1.8 on admission, 1.5 on discharge. Clinic creatinine today was 1.22. 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 His A1c is at 6.4 today and vitamin D deficiency. SURGICAL HISTORY: Includes a pericardial window, appendectomy. FAMILY HISTORY: Both parents are . His mother had a stroke. She had previous heart surgery for valve problems. Father had a heart attack. SOCIAL HISTORY: The patient is retired and single. He used to work at [employer]. He has a daughter with some children who live locally. He has been involved in their care. He used to chew in the past and smoke remotely, but he does not do that currently. He has had vasculitis since 2014. REVIEW OF SYSTEMS: General: The patient has lost some weight, possibly due to his acute illness. Actually, he has lost about 10 pounds in the last few months. Otherwise, as stated in HPI. HEENT: No sore throat. No trouble swallowing. Cardiac: He has had the chest discomfort. He has been short of breath with activity. No heart palpitations. Respiratory: He has had cough and shortness of breath. Abdomen: No nausea, vomiting, or diarrhea. He did have some diarrhea earlier. Neurologic: He has felt lightheaded and weak. Otherwise, all systems reviewed and found to be negative unless otherwise stated. PHYSICAL EXAMINATION: Vital Signs: On hospital admission 143.3 kg, temperature 97.2, pulse 91, blood pressure is 141/78. It was actually like 90/70 in the clinic. His respiratory rate is 24 and O2 of 89% on room air. General: He is in no acute distress, but does appear mildly pale, sitting in a wheelchair, not overly uncomfortable though. Heart: Regular rate and rhythm. S1, S2 without murmur. Lungs: Sounds are clear to auscultation bilaterally without crackles or wheezes. Abdomen: Has positive bowel sounds. It is soft, nondistended, nontender. Extremities: Warm and dry. No edema. No calf tenderness. Mental Status: Alert and oriented x3. LABORATORY WORK: Reviewed from the hospital. D-dimer 4.17. It had been 1.72 on 10/23. INR 1.1, magnesium 1.8. Most of the other lab work had been collected even prior to my appointment in the clinic including an A1c of 6.4. White count 9.1, hemoglobin 15.9, platelets 150. ESR 20, CRP pending. Lipids 149 total, triglycerides 169, HDL 37, LDL 78. His comp panel, glucose 130, BUN 22, creatinine 1.22, sodium 134, potassium 3, chloride 104, bicarb 15, calcium 8.4, albumin 3.6, alk phos 111, AST 58, ALT 37, bilirubin 1.4, and GFR is 60. Troponin negative. ASSESSMENT: 1. Coronavirus disease 19 infection, recovered, diagnosed 10/09/2020, but with shortness of breath, chest discomfort, and lightheadedness. Need to rule out pulmonary embolism with increasing D-dimer. The patient will undergo a CT PE protocol. 2. Generalized weakness and deconditioning due to acute illness. 3. Chronic kidney disease. Creatinine is stable. 4. Mild dehydration. The patient is allowed to drink fluids. I think we can hold off on further intravenous fluids as his blood pressure has improved. 5. Hypokalemia, replaced intravenous and orally. 6. Chronic vasculitis. We will continue his steroids at a higher dose, 20 mg daily for now. 7. Steroid-induced diabetes. We will do q.i.d. Accu-Cheks to monitor blood sugars and adjust insulin as needed. 8. History of atrial fibrillation. We will place him on telemetry. 9. Obesity. 10.Obstructive sleep apnea. 11.Essential hypertension. PLAN: The patient is admitted for observation cares. If we do find a pulmonary embolism, will likely upgrade him to acute cares given that he would require high doses of Lovenox. Currently, he has no evidence of heart strain. If everything does check out and we replace his electrolytes and he feels better tomorrow, he could possibly go home. The patient is aware and in agreement of this plan of care. He is a code level 1. He will be on anticoagulation with Lovenox. MKA: 10/27/2020 18:10:36 MODL: 10/27/2020 20:44:29 /[id number]
--- NOTE | 2020-10-27 21:02 | CT ---
[id number] CT/CTA Chest EXAM: CT ANGIOGRAM CHEST INDICATION: Shortness of breath. COMPARISON: Chest radiograph same date. DISCUSSION: Motion artifact from patient respiration significantly limits this assessment in spite of repeated attempts. Artifact likely accounts for an apparent filling defect within a segmental right upper lobe branch (image 73 series 6). No large or central pulmonary embolism is identified. There are significant multifocal groundglass opacities scattered throughout all lobes of both lungs some of which have associated small foci of consolidation and many which have associated septal thickening (crazy appearing). These findings are most suggestive of infection including potential Covid 19. Left subclavian approach pacemaker leads RA and RV. Normal heart size. No pleural or pericardial effusion. 66 mm fat-containing epigastric hernia. Imaged upper abdomen is otherwise unremarkable. The osseous structures are unremarkable. IMPRESSION: 1. No large or central pulmonary embolism is identified. Evaluation for small and peripheral emboli significantly limited by motion artifact. 2. Multifocal groundglass opacities seen throughout both lungs with associated areas of consolidation and septal thickening are most suggestive of infection including potential Covid 19. Nic Banegas MD 10/27/20 [id number] Thank you for allowing us to participate in the care of your patient.
[2020-10-28] MEDS ORDERED: Enoxaparin 40 MG/0.4 ML Syringe SUBCUT SCH (07:00)
[2020-10-28] MEDS: Omeprazole 20 MG Cap.CR PO SCH ×2 (07:47→17:30)
[2020-10-28 08:06] LABS: CHLORIDE,CL 102 mmol/L (98-107); SODIUM,NA 134 mmol/L (136-145)
[2020-10-28 08:07] LABS: ANION GAP 15.1 mmol/L (10-20)
[2020-10-28] MEDS: Metoprolol Tartrate 25 MG Tab PO SCH ×2 (08:20→20:02)
[2020-10-28] MEDS: predniSONE 10 MG Tab PO SCH (08:20)
[2020-10-28] MEDS: Potassium Chloride 10 MEQ Tab.ER PO SCH (08:21)
[2020-10-28] MEDS: Aspirin 81 MG Tab.EC PO SCH (08:21)
[2020-10-28] MEDS: Insulin Glarg,Human.Rec.Analog 100 Unit/ML SUBCUT SCH (08:21)
[2020-10-28] MEDS ORDERED: Sodium Chloride 0.9% 1,000 ML IV SCH (08:30)
[2020-10-28] MEDS: Doxycycline 100 MG Cap PO SCH ×2 (08:50→20:01)
[2020-10-28] MEDS: cefTRIAXone 1 GM Vial IVPUSH SCH (08:50)
[2020-10-28] MEDS: dexAMETHasone 2 MG, dexAMETHasone 4 MG PO SCH ×2 (08:50)
[2020-10-28] MEDS ORDERED: Magnesium Oxide 400 MG Tab PO ONE (10:49)
[2020-10-28] MEDS ORDERED: Potassium Chloride 20 MEQ Tab.ER PO SCH (12:00)
--- NOTE | 2020-10-28 15:43 | PN ---
Progress Note for NITIN KAHN Date: 10/28/2020 Room #: VM.212 SUBJECTIVE: This is hospital day #2 on a 64-year-old admitted for observation. The patient is quite flushed. He has not had any fever. His T-max was 99.6. He has not been up moving around to see if his breathing has improved. He is still coughing. He is now 20 days past a COVID-19 diagnosis. He did take additional prednisone at home. He is no longer having chest pain. He had a D- dimer that went up to 4, so he had a CT PE protocol last night that ruled out any large blood clots. He is now on oxygen 3 L, when he was not on oxygen before admission. He did not receive any fluids overnight other than with his potassium. He is eating and drinking okay. His ProBNP was elevated to 2743, but his renal function and troponin were normal. Lactic was normal. White count was normal. No diarrhea. OBJECTIVE: Vital Signs: Temperature is 97.9, pulse 67, blood pressure 99/54, respiratory rate 20, and O2 of 92 on 3 L. General: He is in no acute distress. Heart: Regular rate and rhythm. Lungs: Lung sounds are showing some faint expiratory wheezing anteriorly. No crackles. No wheezes. Abdomen: Nondistended. Positive bowel sounds. Nontender. Extremities: Warm and dry. No edema. Mental Status: He is alert. He is orientated x3. LABORATORY DATA: Again, white count normal at 7.6, hemoglobin 15.6, and platelets 133. Sodium 134, potassium 3.1, chloride 102, bicarbonate 20, BUN 20, creatinine 1.2, glucose 136, and calcium 8.1. Ferritin up from 2788 to 3048. UA with 5 to 10 rbc's. ASSESSMENT: 1. Coronavirus disease-19 infection diagnosed on 10/09/2020. He is 28 days out. He is out of isolation; however, he has continued symptoms of generalized weakness and shortness of breath. 2. Acute hypoxia requiring oxygen. CT reviewed. We will place the patient on IV Rocephin and oral doxycycline. We will follow lab work. 3. Generalized weakness. We will get PT involved. 4. Chronic kidney disease with history of vasculitis. His kidney function is stable. We will treat him with dexamethasone 6 mg daily. 5. Mild dehydration. Given the mildly low blood pressures and his overall symptoms, we will finish off the 1 L of fluids that was started with the potassium. 6. Hypokalemia. We will increase his potassium pills to 40 mEq 3 times a day and recheck tomorrow. 7. Steroid-induced diabetes. He has had good blood sugars on q.i.d. Accu- Cheks. 8. History of atrial fibrillation. He has been on telemetry. He has not had any dysrhythmias other than bigeminy on admission, which was presumably due to the low potassium. He is pacing now. 9. Obesity. 10.Obstructive sleep apnea. 11.History of essential hypertension. Currently, his blood pressures are running low. So, we will continue to hold his blood pressure medications. His metformin is also on hold. PLAN: The patient will be upgraded to acute care. I do anticipate his stay will go beyond the next 24 to 48 hours. We will give him IV fluids. We will replace potassium. We will follow lab work. We will give him IV antibiotics and get him up and moving with PT. I am going to hold off on any further Lovenox. Since he had high suspicion for a PE, he was given 150 mg last night, so should be covered for at least a 24-hour period. MKA: 10/28/2020 14:49:55 MODL: 10/28/2020 15:33:32 /[id number]
[2020-10-28] MEDS: Simvastatin 10 MG Tab PO SCH (20:01)
[2020-10-28] MEDS: Potassium Chloride 20 MEQ Tab.ER PO SCH (20:02)
[2020-10-29] MEDS: Omeprazole 20 MG Cap.CR PO SCH ×2 (06:15→16:11)
[2020-10-29 07:31] LABS: ANION GAP 15.6 mmol/L (10-20); CHLORIDE,CL 106 mmol/L (98-107); SODIUM,NA 137 mmol/L (136-145)
[2020-10-29] MEDS: Metoprolol Tartrate 25 MG Tab PO SCH ×2 (08:08→20:17)
[2020-10-29] MEDS: dexAMETHasone 2 MG, dexAMETHasone 4 MG PO SCH ×2 (08:08)
[2020-10-29] MEDS: Aspirin 81 MG Tab.EC PO SCH (08:08)
[2020-10-29] MEDS: cefTRIAXone 1 GM Vial IVPUSH SCH (08:08)
[2020-10-29] MEDS: Potassium Chloride 20 MEQ Tab.ER PO SCH ×2 (08:08→20:16)
[2020-10-29] MEDS: Doxycycline 100 MG Cap PO SCH ×2 (08:08→20:16)
[2020-10-29] MEDS: Insulin Glarg,Human.Rec.Analog 100 Unit/ML SUBCUT SCH (08:14)
[2020-10-29] MEDS: Enoxaparin 40 MG/0.4 ML Syringe SUBCUT SCH (09:45)
[2020-10-29] MEDS: Albuterol HFA 18 Gm Inhaler INH SCH ×3 (09:45→20:17)
--- NOTE | 2020-10-29 10:53 | CR ---
[id number] RAD/RAD Chest PA And Lateral EXAM: RAD Chest PA And Lateral CLINICAL DATA: COUGH COMPARISON: CORRELATION IS MADE WITH OCTOBER 27, 2020 FINDINGS: Bilateral infiltrates are seen The cardiac silhouette is stable The pacemaker is seen IMPRESSION: PERSISTENT BILATERAL PNEUMONIA Rickey Del Cid MD 10/29/20 9117 Thank you for allowing us to participate in the care of your patient.
--- NOTE | 2020-10-29 12:14 | PN ---
Progress Note for NITIN KAHN Date: 10/29/2020 Room #: VM.212 SUBJECTIVE: This is hospital day #3 on a 64-year-old admitted now 20 days post COVID-19 infection. Actually, the patient continues with a cough, but he feels his breathing is doing okay. However, he is requiring 2 L of oxygen; off oxygen, he is 87% to 88% at rest. He has been afebrile. He only has chest discomfort when he is coughing. He is quite tired this morning as he was anxious and did not sleep very well last night. He says that this also happens to him at home. He otherwise did get up and walk with physical therapy already this morning that went okay. He is still having "diarrhea," but only had 1 stool so far this a.m., he had 2 yesterday. He is eating 100% of most meals. Blood sugars did go up on the dexamethasone. He is already on insulin, the highest was 204. OBJECTIVE: Vital Signs: His temperature is 97.4, pulse 70, blood pressure 135/72, respiratory rate 20, and O2 of 91 on 2 L. General: He is in no acute distress. He is resting in his chair. Heart: Regular rate and rhythm. S1, S2 without murmur appreciated. Abdomen: Positive bowel sounds. It is soft, nontender, nondistended. Extremities: Warm and dry. No edema. Mental Status: Alert and orientated x3. Lungs: The patient has some clear lung sounds, but some rare expiratory wheezing appreciated. DIAGNOSTIC DATA: Telemetry was reviewed. The patient alternates between the sinus rhythm and pacing. He has not had any further bigeminy since his electrolytes have been replaced. Lab work for today; his white count normal 9.3, hemoglobin 15.2, platelets 147, they were 133 yesterday. Sodium 137, potassium 3.6, chloride 106, bicarb 19, BUN 23, creatinine 1.2, glucose 154, calcium 8.1, magnesium 2.3. Ferritin down to 2969. Troponin was negative yesterday afternoon. Chest x-ray reviewed, does show the bilateral pneumonia. ASSESSMENT: 1. COVID-19 infection, now 20 days out, recovered, out of isolation, however, with continued respiratory symptoms and cough, likely with a secondary infection. 2. Community-acquired pneumonia after COVID-19 on day #2. IV Rocephin and oral doxycycline. 3. Acute hypoxic respiratory failure. He is on oxygen. We will try to wean him off today. 4. Generalized weakness. He is working with therapy. 5. Chronic kidney disease with history of vasculitis. His kidney function is excellent and stable. 6. Mild dehydration. We gave him a liter of fluids yesterday. His blood pressures are much better. 7. Hypokalemia. He is still on oral replacement. 8. Steroid-induced diabetes with hyperglycemia. We will continue to monitor. He is on his insulin. We will make adjustments if readings consistently stay over 200. 9. Atrial fibrillation. He has had no events on telemetry. 10.He is still on his metoprolol with holding parameters if blood pressures get too low. 11.Obesity. 12.Obstructive sleep apnea. 13.Essential hypertension. Other than his beta-lydia, other medications are on hold. PLAN: The patient will continue acute cares. We will continue to hold his metformin and monitor blood sugars. We will get a chest x-ray today. We will order him some Ativan 0.5 p.r.n. available at bedtime to help with sleep. We will get him continued to be up and moving more with therapy and wean oxygen as able. We will continue the dexamethasone, now day #2. I will continue telemetry for cardiac monitoring. I will also restart Lovenox today for DVT prophylaxis and repeat lab work tomorrow. ZOA: 10/29/2020 11:40:01 MODL: 10/29/2020 12:06:09 /[id number]
[2020-10-29] MEDS: Simvastatin 10 MG Tab PO SCH (20:16)
[2020-10-29] MEDS: Sodium Chloride 0.9% 10 ML Syringe FLUSH PRN (20:19)
[2020-10-30] MEDS: LORazepam 0.5 MG Tab PO PRN (00:48)
[2020-10-30] MEDS: Omeprazole 20 MG Cap.CR PO SCH ×2 (05:59→17:24)
[2020-10-30 07:20] LABS: CHLORIDE,CL 106 mmol/L (98-107); SODIUM,NA 137 mmol/L (136-145)
[2020-10-30 07:21] LABS: ANION GAP 15.8 mmol/L (10-20)
[2020-10-30] MEDS: Doxycycline 100 MG Cap PO SCH ×2 (08:06→19:38)
[2020-10-30] MEDS: Metoprolol Tartrate 25 MG Tab PO SCH ×2 (08:07→19:38)
[2020-10-30] MEDS: dexAMETHasone 2 MG, dexAMETHasone 4 MG PO SCH ×2 (08:07)
[2020-10-30] MEDS: Potassium Chloride 20 MEQ Tab.ER PO SCH ×2 (08:07→19:38)
[2020-10-30] MEDS: Aspirin 81 MG Tab.EC PO SCH (08:07)
[2020-10-30] MEDS: Insulin Glarg,Human.Rec.Analog 100 Unit/ML SUBCUT SCH (08:08)
[2020-10-30] MEDS: cefTRIAXone 1 GM Vial IVPUSH SCH (08:08)
[2020-10-30] MEDS: Enoxaparin 40 MG/0.4 ML Syringe SUBCUT SCH (08:09)
[2020-10-30] MEDS: Albuterol HFA 18 Gm Inhaler INH SCH ×3 (08:10→19:40)
--- NOTE | 2020-10-30 09:59 | PN ---
Progress Note for NITIN KAHN Date: 10/30/2020 Room #: VM.212 SUBJECTIVE: This is hospital day #4 but acute day #3 for a 64-year-old admitted post COVID back around 10/09/2020 but with continued cough, shortness of breath, and fatigue. The patient has underlying ANCA-positive vasculitis but has not had any Rituxan since April. He has chest pain only now with deep breaths. His troponin has been negative. His CT PE protocol was negative. He feels like his cough is loosening up. He otherwise slept most of the day yesterday because his sleep has been poor at night but was able to get up and walk with therapies. He has been monitored with telemetry but has not had any atrial fibrillation. He goes between sinus and a paced rhythm. He is eating well, having bowel movements. No severe diarrhea. OBJECTIVE: Vital Signs: His temperature 96.5, pulse 74, blood pressure 110/75, respiratory rate 20, and O2 of 90 on 2 L. General: He is in no acute distress. Heart: Regular rate and rhythm. Lungs: Lung sounds are decreased with crackles over the left base. No wheezing appreciated today. The right base has no crackles. Abdomen: Nondistended. He has a hernia noted, which is chronic. It is nontender. Extremities: Warm and dry. No edema. Mental Status: He is alert. He is orientated x3. LABORATORY DATA: Laboratory work did show white count normal at 8.8, hemoglobin 15.5, platelets 157, and neutrophils 89%. Sodium 137; potassium 3.8; chloride 106; bicarbonate 19; BUN 24; creatinine 1.1, down from 1.2; glucose 125; AST 48; ALT 58; alkaline phosphatase 111; bilirubin 0.6; and albumin 2.3. ASSESSMENT: 1. COVID-19 infection, now 21 days out, recovered, and out of isolation, however, with continued respiratory symptoms and cough with likely a secondary bacterial infection. The patient was started on oral dexamethasone. He is now day #3. He should complete a 10 day course. As he is chronically on prednisone, he may return to his 10 mg daily dose after this. 2. Community-acquired pneumonia after COVID-19, day #3 intravenous Rocephin and doxycycline. 3. Acute hypoxic respiratory failure. He remains on oxygen. He has been unable to be weaned off. Discussed that he may have to go home with oxygen tomorrow, so we will alert Respiratory Therapy to do a home O2 eval today and ensure that [facility] would be able to get him set up tomorrow. 4. Generalized weakness. He has been up working with therapies. He feels like this is improving. 5. Chronic kidney disease with known vasculitis. His kidney function is stable. He is on Imuran normally, but this has been on hold. I will also restart his Monday, Monday, and Monday Bactrim today that he takes for prophylaxis. 6. Mild dehydration, resolved. He did get some intravenous fluids during his stay. 7. Hypokalemia, improved, on oral replacement. 8. Steroid-induced diabetes with hyperglycemia. I am going to restart his metformin today, although blood sugars have been better with his regular Lantus. 9. Atrial fibrillation by history. No events on telemetry. He is not on full anticoagulation even as an outpatient 10.Essential hypertension. He is on metoprolol. Blood pressures are under good control. I will restart his lisinopril. 11.Obesity. 12.Obstructive sleep apnea. PLAN: The patient will continue acute cares with IV antibiotics. We will resume metformin and lisinopril. He does have Ativan available to help with sleep. We will continue to work with therapies and try to wean oxygen. We will continue dexamethasone. I will discontinue telemetry. He is on Lovenox for DVT prophylaxis. No laboratory work will be repeated tomorrow as it has been quite stable and the patient is a hard draw. NELLIE: 10/30/2020 09:20:09 MODL: 10/30/2020 09:51:42 /[id number] BRENDON
[2020-10-30] MEDS: Sulfamethoxazole/Trimethoprim 800-160 MG Tab PO SCH (10:06)
--- NOTE | 2020-10-30 16:50 | CR ---
[id number] RAD/RAD Chest PA And Lateral EXAM: RAD Chest PA And Lateral CLINICAL DATA: HYPOXIA COMPARISON: CORRELATION IS MADE WITH OCTOBER 29, 2020 FINDINGS: Bilateral infiltrates are about the same The cardiac silhouette is stable IMPRESSION: NO IMPROVEMENT SINCE YESTERDAY Rickey Del Cid MD 10/30/20 [id number] Thank you for allowing us to participate in the care of your patient.
[2020-10-30] MEDS: metFORMIN 500 MG Tab PO SCH (17:24)
[2020-10-30] MEDS: Simvastatin 10 MG Tab PO SCH (19:39)
[2020-10-30] MEDS: Sodium Chloride 0.9% 10 ML Syringe FLUSH PRN (19:46)
[2020-10-31] MEDS: Omeprazole 20 MG Cap.CR PO SCH ×2 (06:16→17:21)
[2020-10-31] MEDS: Aspirin 81 MG Tab.EC PO SCH (07:54)
[2020-10-31] MEDS: Doxycycline 100 MG Cap PO SCH ×2 (07:54→19:51)
[2020-10-31] MEDS: Metoprolol Tartrate 25 MG Tab PO SCH ×2 (07:55→20:01)
[2020-10-31] MEDS: metFORMIN 500 MG Tab PO SCH ×2 (07:55→17:21)
[2020-10-31] MEDS: Lisinopril 5 MG Tab PO SCH (07:55)
[2020-10-31] MEDS: dexAMETHasone 2 MG, dexAMETHasone 4 MG PO SCH ×2 (07:55)
[2020-10-31] MEDS: Potassium Chloride 20 MEQ Tab.ER PO SCH ×2 (07:55→19:51)
[2020-10-31] MEDS: Enoxaparin 40 MG/0.4 ML Syringe SUBCUT SCH (07:56)
[2020-10-31] MEDS: cefTRIAXone 1 GM Vial IVPUSH SCH (07:56)
[2020-10-31] MEDS: Insulin Glarg,Human.Rec.Analog 100 Unit/ML SUBCUT SCH (07:57)
[2020-10-31] MEDS: Albuterol HFA 18 Gm Inhaler INH SCH ×3 (07:58→19:52)
--- NOTE | 2020-10-31 11:08 | PCM.PN ---
- General Info Date of Service: 10/31/20 Admission Dx/Problem (Free Text): Community acquired pneumonia, status post covid 19 infection, acute hypoxic respiratory failure, generalized weakness Subjective Update: Masood is a 64-year-old male who is now hospital day 5 for treatment of community-acquired pneumonia with associated hypoxic respiratory failure. He is status post COVID (10/09/20) presents back to the hospital with cough, shortness breath, fatigue. He states a lot of his symptoms have improved. Yesterday did have some increase in his oxygen demand, provider did get a repeat chest x-ray that demonstrated some bilateral haziness however no acute process was appreciated. Oxygen demand remained elevated last evening and into this morning. Now demanding 4 to 4-1/2 L at rest. Patient denies any worsening of his shortness of breath as long as the oxygen is on. He does endorse that his ankles may be a little bit puffy compared to baseline. - Review of Systems Skin: Reports: No Symptoms Neurological: Reports: No Symptoms Psychiatric: Reports: No Symptoms - Patient Data Vitals - Most Recent: Last Vital Signs Temp 96.5 F L 10/31/20 10:00 Pulse 60 10/31/20 10:00 Resp 20 10/31/20 10:00 BP 103/62 10/31/20 10:00 Pulse Ox 91 L 10/31/20 10:10 Weight - Most Recent: 315 lb 14.758 oz I&O - Last 24 Hours: Intake & Output 10/30/20 10/31/20 10/31/20 22:59 06:59 14:59 Intake Total 920 150 120 Output Total 225 300 Balance 695 -150 120 Lab Results Last 24 Hours: Laboratory Results - last 24 hr 10/30/20 10/30/20 10/30/20 Range/Units 06:48 11:16 17:23 POC Glucose 141 H 183 H (74-106) mg/dL NT-Pro-B Natriuret Pep 1308 H (<=125) pg/mL 10/30/20 10/31/20 Range/Units 19:35 06:17 POC Glucose 204 H 129 H (74-106) mg/dL NT-Pro-B Natriuret Pep (<=125) pg/mL Med Orders - Current: Current Medications Acetaminophen (Tylenol) 650 mg PO Q4H PRN PRN Reason: Pain Albuterol (Ventolin Hfa) 0 gm INH QID PRN PRN Reason: Wheezing Last Admin: 10/27/20 21:39 Dose: 1 puff Documented by: Albuterol (Ventolin Hfa) 0 gm INH TID [facility] Last Admin: 10/31/20 07:58 Dose: 2 puff Documented by: Aspirin (Halfprin) 81 mg PO DAILY [facility] Last Admin: 10/31/20 07:54 Dose: 81 mg Documented by: Ceftriaxone Sodium (Rocephin) 1 gm IVPUSH DAILY [facility] Last Admin: 10/31/20 07:56 Dose: 1 gm Documented by: Dexamethasone 2 mg/ (Dexamethasone 4 mg) 6 mg PO DAILY [facility] Stop: 11/06/20 23:00 Last Admin: 10/31/20 07:55 Dose: 6 mg Documented by: Dextrose/Water (Dextrose 50% In Water) 50 ml IV ASDIRECTED PRN PRN Reason: Hypoglycemia Doxycycline Hyclate (Vibramycin) 100 mg PO BID [facility] Last Admin: 10/31/20 07:54 Dose: 100 mg Documented by: Enoxaparin Sodium (Lovenox) 40 mg SUBCUT Q24H [facility] Last Admin: 10/31/20 07:56 Dose: 40 mg Documented by: Glucagon (Glucagen) 1 mg IM ASDIRECTED PRN PRN Reason: Hypoglycemia Insulin Glargine (Lantus) 15 unit SUBCUT DAILY [facility] Last Admin: 10/31/20 07:57 Dose: 15 units Documented by: Lisinopril (Prinivil) 5 mg PO DAILY [facility] Last Admin: 10/31/20 07:55 Dose: 5 mg Documented by: Lorazepam (Ativan) 0.5 mg PO BEDTIME PRN PRN Reason: Insomnia Last Admin: 10/30/20 00:48 Dose: 0.5 mg Documented by: Metformin HCl (Glucophage) 500 mg PO BIDMEALS [facility] Last Admin: 10/31/20 07:55 Dose: 500 mg Documented by: Metoprolol Tartrate (Lopressor) 25 mg PO BID [facility] Last Admin: 10/31/20 07:55 Dose: 25 mg Documented by: Omeprazole (Omeprazole) 40 mg PO BIDAC [facility] Last Admin: 10/31/20 06:16 Dose: 40 mg Documented by: Potassium Chloride (Klor-Con M20) 20 meq PO BID [facility] Last Admin: 10/31/20 07:55 Dose: 20 meq Documented by: Simvastatin (Zocor) 10 mg PO BEDTIME [facility] Last Admin: 10/30/20 19:39 Dose: 10 mg Documented by: Sodium Chloride (Saline Flush) 10 ml FLUSH ASDIRECTED PRN PRN Reason: Keep Vein Open Last Admin: 10/30/20 19:46 Dose: 10 ml Documented by: Trimethoprim/Sulfamethoxazole (Septra Ds) 1 tab PO MoWeFr@0800 [facility] Last Admin: 10/30/20 10:06 Dose: 1 tab Documented by: Discontinued Medications Enoxaparin Sodium (Lovenox) 40 mg SUBCUT DAILY [facility] Enoxaparin Sodium (Lovenox) 150 mg SUBCUT ONETIME ONE Stop: 10/27/20 17:57 Last Admin: 10/27/20 18:10 Dose: 150 mg Documented by: Potassium Chloride 20 meq/ (Premix) 50 mls @ 50 mls/hr IV ONETIME ONE Stop: 10/27/20 17:52 Last Admin: 10/27/20 18:07 Dose: 50 mls/hr Documented by: Sodium Chloride (Normal Saline) 1,000 mls @ 150 mls/hr IV ASDIRECTED [facility] Last Admin: 10/28/20 08:51 Dose: 150 mls/hr Documented by: Iopamidol (Isovue-300 (61%)) 100 ml IV ONETIME ONE Stop: 10/27/20 20:41 Last Admin: 10/27/20 20:41 Dose: 100 ml Documented by: Iopamidol (Isovue-300 (61%)) 100 ml IVPUSH ONETIME ONE Stop: 10/27/20 20:20 Last Admin: 10/28/20 00:27 Dose: Not Given Documented by: Iopamidol (Isovue-300 (61%)) 100 ml IVPUSH ONETIME ONE Stop: 10/27/20 20:32 Last Admin: 10/28/20 00:27 Dose: Not Given Documented by: Magnesium Oxide (Magnesium Oxide) 400 mg PO ONETIME ONE Stop: 10/28/20 10:50 Last Admin: 10/28/20 11:33 Dose: 400 mg Documented by: Potassium Chloride (Klor-Con 10) 20 meq PO BIDMEALS [facility] Last Admin: 10/28/20 08:21 Dose: 20 meq Documented by: Potassium Chloride (Klor-Con M20) 40 meq PO TID [facility] Last Admin: 10/28/20 11:33 Dose: 40 meq Documented by: Prednisone (Prednisone) 20 mg PO DAILY [facility] Last Admin: 10/28/20 08:20 Dose: 20 mg Documented by: - Exam Quality Assessment: Supplemental Oxygen (4L) General: Alert, Oriented HEENT: Pupils Equal Neck: Supple Lungs: Crackles (left lung base) Cardiovascular: Regular Rate, Regular Rhythm GI/Abdominal Exam: Normal Bowel Sounds, Soft, Non-Tender Extremities: Pedal Edema (trace bilaterally) Skin: Warm, Dry Psy/Mental Status: Normal Affect, Normal Mood Sepsis Event Note - Evaluation Sepsis Screening Result: No Definite Risk - Focused Exam Vital Signs: Vital Signs Temp Pulse Pulse Resp BP BP Pulse Ox 10/31/20 10:10 91 L 10/31/20 10:00 96.5 F L 60 20 103/62 85 L 10/31/20 08:16 10/31/20 07:55 61 129/74 10/31/20 06:00 96.2 F L 61 19 129/74 91 L 10/31/20 02:00 96.9 F 64 19 134/119 H 93 L Pulse Ox 10/31/20 10:10 10/31/20 10:00 10/31/20 08:16 96 10/31/20 07:55 10/31/20 06:00 10/31/20 02:00 - Problem List & Annotations (1) Hypoxia SNOMED Code(s): 137081893 Code(s): R09.02 - HYPOXEMIA Status: Acute Current Visit: Yes (2) Community acquired bacterial pneumonia SNOMED Code(s): 639992627, 131290524 Code(s): J15.9 - UNSPECIFIED BACTERIAL PNEUMONIA Status: Acute Current Visit: Yes (3) Generalized weakness SNOMED Code(s): 93506307 Code(s): R53.1 - WEAKNESS Status: Acute Current Visit: No - Problem List Review Problem List Initiated/Reviewed/Updated: Yes - Assessment Assessment:: # Community acquired pneumonia after COVID 19 # Hypoxic respiratory failure - Patient presented with increased cough and oxygen demand after recovering from Covid 19, to have secondary bacterial infection - Now on day 4 of antibiotics: Rocephin and doxycycline - On day 4 of 10 of oral dexamethasone - O2 demand has gone up overnight, concern for some congestion Plan: - Will give a dose of Lasix 20 mg IV today. Nursing to monitor ins and outs. 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 fib - not on full anticoagulation, continue metoprolol Essential hypertension - continue metoprolol and lisinopril Obesity MARK DVT: lovenox Dispo: Plan for patient to continue acute cares. We'll continue IV antibiotics at this time. We'll give a dose of Lasix today to see if this helps with his oxygen demand. 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 We'll continue to try to wean oxygen. Ultimately, anticipate the patient will be able to discharge home early this next week with home oxygen.
[2020-10-31] MEDS ORDERED: Furosemide 20 MG/2 ML VIAL IV ONE (11:16)
[2020-10-31] MEDS: Simvastatin 10 MG Tab PO SCH (19:51)
[2020-10-31] MEDS: Sodium Chloride 0.9% 10 ML Syringe FLUSH PRN (20:02)
[2020-11-01] MEDS: Omeprazole 20 MG Cap.CR PO SCH ×2 (06:30→17:21)
[2020-11-01] MEDS: metFORMIN 500 MG Tab PO SCH ×2 (08:22→17:21)
[2020-11-01] MEDS: Potassium Chloride 20 MEQ Tab.ER PO SCH ×2 (08:22→19:43)
[2020-11-01] MEDS: Doxycycline 100 MG Cap PO SCH ×2 (08:22→19:43)
[2020-11-01] MEDS: Metoprolol Tartrate 25 MG Tab PO SCH ×2 (08:23→19:43)
[2020-11-01] MEDS: Lisinopril 5 MG Tab PO SCH (08:23)
[2020-11-01] MEDS: Aspirin 81 MG Tab.EC PO SCH (08:23)
[2020-11-01] MEDS: dexAMETHasone 2 MG, dexAMETHasone 4 MG PO SCH ×2 (08:23)
[2020-11-01 08:24] LABS: CHLORIDE,CL 104 mmol/L (98-107); SODIUM,NA 136 mmol/L (136-145)
[2020-11-01] MEDS: cefTRIAXone 1 GM Vial IVPUSH SCH (08:24)
[2020-11-01] MEDS: Insulin Glarg,Human.Rec.Analog 100 Unit/ML SUBCUT SCH (08:24)
[2020-11-01] MEDS: Enoxaparin 40 MG/0.4 ML Syringe SUBCUT SCH (08:25)
[2020-11-01] MEDS: Albuterol HFA 18 Gm Inhaler INH SCH ×3 (08:25→19:47)
[2020-11-01 08:26] LABS: ANION GAP 16.7 mmol/L (10-20)
[2020-11-01] MEDS ORDERED: Furosemide 20 MG/2 ML VIAL IV ONE (10:01)
--- NOTE | 2020-11-01 10:08 | PCM.PN ---
- General Info Date of Service: 11/01/20 Admission Dx/Problem (Free Text): Community acquired pneumonia, status post covid 19 infection, acute hypoxic respiratory failure, generalized weakness Subjective Update: Masood is a 64-year-old male who is now hospital day 5 for treatment of community-acquired pneumonia with associated hypoxic respiratory failure. He is status post COVID (10/09/20) and presents back to the hospital with cough, shortness breath, fatigue. He states a lot of his symptoms have improved. On 10/30/20 did have some increase in his oxygen demand, provider did get a repeat chest x-ray that demonstrated some bilateral haziness however no acute process was appreciated. Oxygen demand has gone up over the weekend. Was requiring 4.5L yesterday morning, treated with 1 dose of IV lasix. Due to SBP in the 90s did hold evening dose of metoprolol without affect on his rates. O2 demand did go up to 6L by yesterday evening. No acute events overnight. Patient remains on 6L this morning with sats in the low 90s. Subjectively states that he feels better from a breathing standpoint. Continues on dex and antibiotics. Had 3L of fluid off with the 1 dose of IV lasix 20mg yesterday. - Patient Data Vitals - Most Recent: Last Vital Signs Temp 96.5 F L 11/01/20 06:00 Pulse 70 11/01/20 08:23 Resp 17 11/01/20 06:00 BP 111/65 11/01/20 08:23 Pulse Ox 92 L 11/01/20 09:50 Weight - Most Recent: 315 lb 14.758 oz I&O - Last 24 Hours: Intake & Output 10/31/20 11/01/20 11/01/20 22:59 06:59 14:59 Intake Total 240 400 Output Total 2000 1300 Balance -1760 -900 Lab Results Last 24 Hours: Laboratory Results - last 24 hr 10/31/20 10/31/20 10/31/20 Range/Units 11:24 17:19 19:58 Sodium (136-145) mmol/L Potassium (3.5-5.1) mmol/L Chloride (98-107) mmol/L Carbon Dioxide (21-32) mmol/L Anion Gap (10-20) mmol/L BUN (7-18) mg/dL Creatinine (0.70-1.30) mg/dL Est Cr Clr Drug Dosing mL/min Estimated GFR (MDRD) Glucose (74-106) mg/dL POC Glucose 122 H 168 H 189 H (74-106) mg/dL Calcium (8.5-10.1) mg/dL 11/01/20 11/01/20 Range/Units 06:29 07:32 Sodium 136 (136-145) mmol/L Potassium 4.7 (3.5-5.1) mmol/L Chloride 104 (98-107) mmol/L Carbon Dioxide 20 L (21-32) mmol/L Anion Gap 16.7 (10-20) mmol/L BUN 36 H (7-18) mg/dL Creatinine 1.2 (0.70-1.30) mg/dL Est Cr Clr Drug Dosing 72.31 mL/min Estimated GFR (MDRD) > 60 Glucose 133 H (74-106) mg/dL POC Glucose 115 H (74-106) mg/dL Calcium 8.7 (8.5-10.1) mg/dL Med Orders - Current: Current Medications Acetaminophen (Tylenol) 650 mg PO Q4H PRN PRN Reason: Pain Albuterol (Ventolin Hfa) 0 gm INH QID PRN PRN Reason: Wheezing Last Admin: 10/27/20 21:39 Dose: 1 puff Documented by: Albuterol (Ventolin Hfa) 0 gm INH TID [facility] Last Admin: 11/01/20 08:25 Dose: 2 puff Documented by: Aspirin (Halfprin) 81 mg PO DAILY [facility] Last Admin: 11/01/20 08:23 Dose: 81 mg Documented by: Ceftriaxone Sodium (Rocephin) 1 gm IVPUSH DAILY [facility] Last Admin: 11/01/20 08:24 Dose: 1 gm Documented by: Dexamethasone 2 mg/ (Dexamethasone 4 mg) 6 mg PO DAILY [facility] Stop: 11/06/20 23:00 Last Admin: 11/01/20 08:23 Dose: 6 mg Documented by: Dextrose/Water (Dextrose 50% In Water) 50 ml IV ASDIRECTED PRN PRN Reason: Hypoglycemia Doxycycline Hyclate (Vibramycin) 100 mg PO BID [facility] Last Admin: 11/01/20 08:22 Dose: 100 mg Documented by: Enoxaparin Sodium (Lovenox) 40 mg SUBCUT Q24H [facility] Last Admin: 11/01/20 08:25 Dose: 40 mg Documented by: Glucagon (Glucagen) 1 mg IM ASDIRECTED PRN PRN Reason: Hypoglycemia Insulin Glargine (Lantus) 15 unit SUBCUT DAILY [facility] Last Admin: 11/01/20 08:24 Dose: 15 units Documented by: Lisinopril (Prinivil) 5 mg PO DAILY [facility] Last Admin: 11/01/20 08:23 Dose: 5 mg Documented by: Lorazepam (Ativan) 0.5 mg PO BEDTIME PRN PRN Reason: Insomnia Last Admin: 10/30/20 00:48 Dose: 0.5 mg Documented by: Metformin HCl (Glucophage) 500 mg PO BIDMEALS [facility] Last Admin: 11/01/20 08:22 Dose: 500 mg Documented by: Metoprolol Tartrate (Lopressor) 25 mg PO BID [facility] Last Admin: 11/01/20 08:23 Dose: 25 mg Documented by: Omeprazole (Omeprazole) 40 mg PO BIDAC [facility] Last Admin: 11/01/20 06:30 Dose: 40 mg Documented by: Potassium Chloride (Klor-Con M20) 20 meq PO BID [facility] Last Admin: 11/01/20 08:22 Dose: 20 meq Documented by: Simvastatin (Zocor) 10 mg PO BEDTIME [facility] Last Admin: 10/31/20 19:51 Dose: 10 mg Documented by: Sodium Chloride (Saline Flush) 10 ml FLUSH ASDIRECTED PRN PRN Reason: Keep Vein Open Last Admin: 10/31/20 20:02 Dose: 10 ml Documented by: Trimethoprim/Sulfamethoxazole (Septra Ds) 1 tab PO MoWeFr@0800 [facility] Last Admin: 10/30/20 10:06 Dose: 1 tab Documented by: Discontinued Medications Enoxaparin Sodium (Lovenox) 40 mg SUBCUT DAILY [facility] Enoxaparin Sodium (Lovenox) 150 mg SUBCUT ONETIME ONE Stop: 10/27/20 17:57 Last Admin: 10/27/20 18:10 Dose: 150 mg Documented by: Furosemide (Lasix) 20 mg IV ONETIME ONE Stop: 10/31/20 11:17 Last Admin: 10/31/20 12:03 Dose: 20 mg Documented by: Potassium Chloride 20 meq/ (Premix) 50 mls @ 50 mls/hr IV ONETIME ONE Stop: 10/27/20 17:52 Last Admin: 10/27/20 18:07 Dose: 50 mls/hr Documented by: Sodium Chloride (Normal Saline) 1,000 mls @ 150 mls/hr IV ASDIRECTED [facility] Last Admin: 10/28/20 08:51 Dose: 150 mls/hr Documented by: Iopamidol (Isovue-300 (61%)) 100 ml IV ONETIME ONE Stop: 10/27/20 20:41 Last Admin: 10/27/20 20:41 Dose: 100 ml Documented by: Iopamidol (Isovue-300 (61%)) 100 ml IVPUSH ONETIME ONE Stop: 10/27/20 20:20 Last Admin: 10/28/20 00:27 Dose: Not Given Documented by: Iopamidol (Isovue-300 (61%)) 100 ml IVPUSH ONETIME ONE Stop: 10/27/20 20:32 Last Admin: 10/28/20 00:27 Dose: Not Given Documented by: Magnesium Oxide (Magnesium Oxide) 400 mg PO ONETIME ONE Stop: 10/28/20 10:50 Last Admin: 10/28/20 11:33 Dose: 400 mg Documented by: Potassium Chloride (Klor-Con 10) 20 meq PO BIDMEALS [facility] Last Admin: 10/28/20 08:21 Dose: 20 meq Documented by: Potassium Chloride (Klor-Con M20) 40 meq PO TID [facility] Last Admin: 10/28/20 11:33 Dose: 40 meq Documented by: Prednisone (Prednisone) 20 mg PO DAILY [facility] Last Admin: 10/28/20 08:20 Dose: 20 mg Documented by: - Exam Quality Assessment: Supplemental Oxygen (6L) General: Alert, Oriented Neck: Supple Lungs: Clear to Auscultation, Normal Respiratory Effort (inspiratory crackles in the left lung base cleared.), Decreased Breath Sounds (poor breath sounds throughout, however less so on the right side) Cardiovascular: Regular Rate, Regular Rhythm GI/Abdominal Exam: Normal Bowel Sounds, Soft, Non-Tender Extremities: Non-Tender, Pedal Edema (trace) Skin: Warm, Dry, Intact Neurological: No New Focal Deficit Psy/Mental Status: Alert, Normal Affect, Anxious Sepsis Event Note - Evaluation Sepsis Screening Result: No Definite Risk - Focused Exam Vital Signs: Vital Signs Temp Pulse Pulse Resp BP BP Pulse Ox 11/01/20 09:50 11/01/20 08:23 70 111/65 11/01/20 06:00 96.5 F L 70 17 111/65 93 L 11/01/20 02:00 96.0 F L 66 19 111/70 92 L Pulse Ox 11/01/20 09:50 92 L 11/01/20 08:23 11/01/20 06:00 11/01/20 02:00 - Problem List & Annotations (1) Hypoxia SNOMED Code(s): 855820921 Code(s): R09.02 - HYPOXEMIA Status: Acute Current Visit: Yes (2) Community acquired bacterial pneumonia SNOMED Code(s): 122644224, 897780819 Code(s): J15.9 - UNSPECIFIED BACTERIAL PNEUMONIA Status: Acute Current Visit: Yes (3) Generalized weakness SNOMED Code(s): 31802169 Code(s): R53.1 - WEAKNESS Status: Acute Current Visit: No - Problem List Review Problem List Initiated/Reviewed/Updated: Yes - My Orders Last 24 Hours: My Active Orders 11/01/20 10:01 Furosemide [Lasix] 20 mg IV ONETIME ONE 11/02/20 07:00 BASIC METABOLIC PANEL,BMP [CHEM] Routine - Assessment Assessment:: # Community acquired pneumonia after COVID 19 # Hypoxic respiratory failure - Patient presented with increased cough and oxygen demand after recovering from Covid 19, now with secondary bacterial infection - Now on day 5 of antibiotics: Rocephin and doxycycline - On day 5 of 10 of oral dexamethasone - Patient with 3L of output with 1 dose of IV lasix, labs and vitals tolerated this Plan: - Discussed options with patient, he would like to try another dose of IV lasix today with his subjective improvement with this yesterday - Nursing to monitor ins and outs. 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 fib - not on full anticoagulation, continue metoprolol Essential hypertension - continue metoprolol and lisinopril Obesity MARK DVT: lovenox Dispo: Plan for patient to continue acute cares. We'll continue IV antibiotics at this time. We'll give another dose of Lasix today to see if this helps with his oxygen demand. Discussed potential for delayed lung-healing as well as post-Covid cardiomyopathy with the patient and that if he doesn't improve consideration may need to be given for echo done at a future date to evaluate heart function. We'll continue to try to wean oxygen as tolerated. Will continue to monitor
[2020-11-01] MEDS: Simvastatin 10 MG Tab PO SCH (19:43)
[2020-11-01] MEDS: Sodium Chloride 0.9% 10 ML Syringe FLUSH PRN (19:50)
[2020-11-02] MEDS: LORazepam 0.5 MG Tab PO PRN (02:22)
[2020-11-02] MEDS: Omeprazole 20 MG Cap.CR PO SCH (06:13)
[2020-11-02 07:05] LABS: ANION GAP 17.6 mmol/L (10-20); CHLORIDE,CL 103 mmol/L (98-107); SODIUM,NA 134 mmol/L (136-145)
[2020-11-02] MEDS: cefTRIAXone 1 GM Vial IVPUSH SCH (07:59)
[2020-11-02] MEDS: Enoxaparin 40 MG/0.4 ML Syringe SUBCUT SCH (08:01)
[2020-11-02] MEDS: Insulin Glarg,Human.Rec.Analog 100 Unit/ML SUBCUT SCH (08:05)
[2020-11-02] MEDS: Sulfamethoxazole/Trimethoprim 800-160 MG Tab PO SCH (08:07)
[2020-11-02] MEDS: dexAMETHasone 2 MG, dexAMETHasone 4 MG PO SCH ×2 (08:07)
[2020-11-02] MEDS: metFORMIN 500 MG Tab PO SCH (08:07)
[2020-11-02] MEDS: Potassium Chloride 20 MEQ Tab.ER PO SCH (08:07)
[2020-11-02] MEDS: Doxycycline 100 MG Cap PO SCH (08:08)
[2020-11-02] MEDS: Aspirin 81 MG Tab.EC PO SCH (08:08)
[2020-11-02] MEDS: Albuterol HFA 18 Gm Inhaler INH SCH ×2 (08:10→11:11)
[2020-11-02] MEDS: Metoprolol Tartrate 25 MG Tab PO SCH (09:19)
[2020-11-02] MEDS: Lisinopril 5 MG Tab PO SCH (09:19)
[2020-11-02] MEDS ORDERED: Sodium Chloride 0.9% 500 ML IV ONE (09:45)
--- NOTE | 2020-11-02 10:16 | CR ---
[id number] RAD/RAD Chest PA or AP 1V EXAM: RAD Chest PA or AP 1V INDICATION: HYPOXIA. COMPARISON: October 30, 2020. DISCUSSION: Left chest wall cardiac conduction device. Cardiomediastinal silhouette is stable in size and contour. Coarse pulmonary infiltrates bilaterally, left greater than right. No pneumothorax or pleural effusion. Central pulmonary vascular congestion. IMPRESSION: 1. Central pulmonary vascular congestion. 2. Coarse pulmonary infiltrates bilaterally, left greater than right. Findings are likely infectious/inflammatory in nature. Navi Sepulveda DO 11/02/20 1014 Thank you for allowing us to participate in the care of your patient.
[2020-11-02 10:32] VITALS: BP 103/44; PULSE 64
--- OUTSIDE RECORDS SUMMARY | 2020-11-02 10:48 | XMSREPORT | Referral Summary ---
:1955 Author Organization [facility] and [facility] s Address [address] [place] [address] Care Team Providers Name Role Phone DO Scot Primary Care Provider DO Scot Attributed Provider Reason for Referral Transitions of Care (Routine) Status Reason Specialty Diagnoses / Referred By Referred To Procedures Contact Contact New Request Patient Diagnoses Closed fracture of right ankle with delayed healing, subsequent encounter Adriana Ellison, Chi Preference DO Edda [facility], [facility] [address] [facility] [address] [facility] [address] [place], [place] Phone: [phone] Phone: Encounter Details Date Type Department Care Team Description 11/02/2020 Telephone [facility] Jonatan sonEdda DO CLINIC [address] [facility] [address] [place] [address] [place], [place] [address] [phone] Allergies No Known Allergiesdocumented as of this encounter (statuses as of 11/02/2020) Medications Medication Sig Dispensed Refills Start End Status Date Date aspirin 81 mg enteric Take 81 mg by 0 Active coated tablet mouth 1 time per day. Lancets (MICROLET) Test 2-3 times 100 each 0 Active MISCIndications: Type 2 daily for type 2 7 diabetes mellitus diabetes without complication, without long-term current use of insulin ([facility]) insulin needle (BD Use to inject 100 each 3 Active ULTRAFINE PEN NEEDLE) Lantus once daily 7 31G X 5 mm (316") MiniIndications: Type 2 diabetes mellitus without complication, without long-term current use of insulin (HCC) blood glucose test strip 4 times a day 100 each 12 Active (DMITRIY CONTOUR NEXT) 7 STRPIndications: Type 2 diabetes mellitus without complication, without long-term current use of insulin (HCC) calcium Take 1 tablet by 30 tablet 0 Act brie carbonate-vitamin D mouth 2 times a 7 (OSCAL 500 + VIT D) 500 day with meals mg-200 unit tabletIndications: Vitamin D deficiency riTUXimab (RITUXAN) in Administer 0 Active sodium chloride 0.9% intravenously ketoconazole (NIZORAL) 2 Apply 1 0 Active % cream application to 0 affected area as needed albuterol HFA Inhale 1 puff 3 Inhaler 4 Ac tive (PROVENTIL,PROAIR,VENTOL orally 4 times a 0 021 IN) 108 (90 Base) day as needed for MCG/ACT inhaler wheezing Shake well before using. alendronate (FOSAMAX) 70 Take 1 tablet (70 12 tablet 0 02 Active mg tabletIndications: On mg) by mouth 1 0 prednisone therapy time a week fluticasone (FLONASE) 50 Mcintyre 1 spray into 1 Bottle 4 Active mcg/spray nasal each nostril 2 0 sprayIndications: times a day as Chronic rhinitis needed for other (Specify) (nasal congestion) insulin glargine (LANTUS Inject 15 Units 5 pen 3 Active SOLOSTAR) subcutaneous subcutaneously 0 injection solution Every 24 hours (pen)Indications: Type 2 diabetes mellitus without complication, without long-term current use of insulin (HCC) lisinopril (PRINIVIL, Take 1 tablet (5 90 tablet 4 1 Active ZESTRIL) 5 mg mg) by mouth 1 0 021 tabletIndications: time per day Essential hypertension, Chronic kidney disease, stage III (moderate), Granulomatosis with polyangiitis (HCC), Proteinuria, unspecified type, Essential hypertension with goal blood pressure less than 140/90 metFORMIN (GLUCOPHAGE) Take 2 tablets 360 tablet 4 Active 500 MG (1,000 mg) by 0 tabletIndications: Type mouth 2 times a 2 diabetes mellitus day without complication, without long-term current use of insulin (HCC) omeprazole (PRILOSEC) 40 Take 1 capsule (40 180 capsule 4 Active mg capsuleIndications: mg) by mouth 2 0 On prednisone therapy times a day before meals potassium chloride Take 1 tablet (20 180 tablet 4 Active (KLOR-CON M20) 20 MEQ CR mEq) by mouth 2 0 tabletIndications: times a day Hypokalemia pravastatin (PRAVACHOL) Take 1 tablet (20 100 tablet 3 02 Active 20 mg tabletIndications: mg) by mouth every 0 Pure night at bedtime hypercholesterolemia vitamin D2, Take 1 capsule 24 capsule 3 Ac tive ergocalciferol, (50,000 Units) by 0 (DRISDOL) 91150 unit mouth on Monday capsuleIndications: and Monday Vitamin D deficiency predniSONE 20 mg Take 0.5 tablets 30 tablet 3 Active tabletIndications: (10 mg) by mouth 1 0 Granulomatosis with time per day polyangiitis with renal involvement (HCC) azaTHIOprine (IMURAN) 50 Take 1 tablet (50 60 tablet 2 02 Active MG tabletIndications: mg) by mouth 1 0 021 Granulomatosis with time per day polyangiitis (HCC) sulfamethoxazole-trimeth Take 1 tablet by 12 tablet 5 05/01/20 2 Active oprim double strength mouth on Monday, 0 (BACTRIM DS, SEPTRA DS) Monday, and 800-160 mg double Monday strength tabletIndications: Granulomatosis with polyangiitis (HCC) metoprolol tartrate Take 1 tablet (25 180 tablet 4 0 Active (LOPRESSOR) 25 mg mg) by mouth 2 0 021 tabletIndications: times a day Essential hypertension, Paroxysmal atrial fibrillation (HCC) documented as of this encounter (statuses as of 11/02/2020) Active Problems Problem Noted Date Incisional hernia, without obstruction or gangrene 10/2020 Secondary hyperparathyroidism of renal origin 03/12/20 19 Other osteoporosis without current pathological fractu re 03/07/2019 Overview: 4 % hip fx risk in 02/03 repeat planned on fosamax since 2013 but admits not always taking consistently. 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 Due to cytoxan and admit in 02/01 bactr im also stopped along with allopuriniol Chronic kidney disease, stage III (moderate) 5 Overview: Cr 1.2 in 11/03 Vitamin D deficiency 06/10/2014 Overview: Drisdol monthly did not tolerate fosamax due to nausea MARK on CPAP 06/10/2014 Overview: The apnea-hypopnea index was 25.8 events per hour on 8 cm in 05/03 Granulomatosis with polyangiitis 04/04/2014 Overview: Started back in 2013 presented with shoulder pain. Had a mod to severe flare in and was started on Rituxan had been in Imuran 75 BID prior (hemorrhagic pericardial effusion and pericarditis). Unable to get Rituxan end of 2017 due to insurance then had a minor flare end of 10/07 increased prednisone to 10 then admitted with sinusitis and feeling week got restarted in imuran 50 plan to incre ase to 100 in a month and prednisone was increased to 20 mg kidney disease stage III likely secondar y to MPA/GPA disease. AKA Gerri's granulomatosis Coronary artery disease, non-occlusive 03/03/2014 Overview: Cath 01/31 at time of pacemaker worst stenosis was 50 % discrete ostial stenosis of the RPDA. There is a 40% discrete stenosis after the bifurcation of D1 Paroxysmal atrial fibrillation 03/03/2014 Overview: Patient here for Post Op Pacemaker check . Noted that the patient has had 26 Atrial Fibrillation episodes since his last gaetano ck on 02/07/14. Willis percent is 71% of the time he is in Atrial Fibrillation. We ar e to notify the patient's primary care provider if the Willis is 5% or higher. Ventricular rates appear to be controlled at 70-80 bpm. Patient is not on Coumadin. P atient states he is short of breath with any activity and very fatigued lately. Jaime hadley has an appointment to see you on 03/03/14. Discussed risks and benefits of coumadin will hold off at this time due to Vasculitis and multiple medications for that, Peter score only 1 as his hyperglycemia is steroid induced. CHADSVASC 2. At the time of a ssessment Cardiology calculated 1 when he had a pericardial bleed that required surgic al evacuation of the pericardial clot, secondary to bleed, the safest thing to do is aspirin. HCAP (healthcare-associated pneumonia) 02/11/2014 Complete heart block 02/06/2014 Overview: Dual chamber pacemaker 02/06/14 Dr Ada crabtree Renal cyst 01/23/2014 Overview: Recommended follow up CT scan for comple x, poorly identified cyst, 01/23/14. Hypertension Overview: Rx HCTZ 12/26, Lopressor 10/25 Lisinopril 20 mg daily added 05/01 Hyperlipidemia Overview: 10/25 Rx Pravachol Obesity Overview: 08/02 has gained 50# over 5 years but then lost 80 lbs in 1 year with Vasculitis diagnosis in 2013 See also hypertension, hyperlipidemia Internal hemorrhoids Overview: 07/28 Colonoscopy, no polyps, just an internal hemorrhoid; presume next one in 10 years, 08/07 Leukoplakia of tongue Overview: 08/02 has 3 small white patches, not p ainful, not palpable; shared w patient, will observe Family history of Alpha's disease Overview: Family Hx, incl. father Steroid-induced diabetes mellitus Overview: FBS's > 100 since 12/22. Lantus sta rted in 2013 when prednisone added for vasculitis. A1c was 7.4 in 03/03. Chest pain, non-cardiac Overview: 09/25 Hosp for chest pain, other test s and Cardiolite stress test negative Ankle fracture, right Overview: 08/29, at work; at ER visit thought t o be just small avulsion; 09/29 Podiatry found significan Fx, non-displaced, Rx C AM walker Colon cancer screening Overview: Colonoscopy 07/28, negative, presume n ext in 10 years Prostate cancer screening Overview: PSA 08/02 pending; FAVIOLA unknown Hearing loss in right ear Overview: Audiogram 08/30 showed significant lo ss R only in all frequencies, apparently not noise-induced Gout Overview: 01/03 acute arthritis R wrist, improved with prednisone; uric acid 7.9; Rx allopurinol 100 mg daily later found out to have vasculitis in 01/31. 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; see also obesity 01/31 ER, couldn't get out of bed, X-r ay shows degenerative changes bilateral but exam OK him a advised Ortho eventually, vigorous quad strengthening now Alopecia totalis Overview: Since age 5, told it would resolve some day but never did 07/06 some hair growth on chin and nec k is attributed to his steroid Rx documented as of this encounter (statuses as of 11/02/2020) Resolved Problems Problem Noted Date Resolved Date Bacteremia 11/11/2017 02/08/2018 Bilateral pneumonia 11/11/2017 02/08/2018 BRITT (acute kidney injury) 11/11/2017 03/07/2019 Severe sepsis with septic shock 11/11/2017 02/09/20 18 Immunocompromised due to corticosteroids 11/11/2017 02/08/2018 Leukocytosis 07/06/2017 02/08/2018 Chest pain 07/06/2017 02/08/2018 Atrial fibrillation with RVR 07/06/2017 03/07/2019 Acute maxillary sinusitis 11/09/2015 02/08/2018 Overview: augmentin 08/04 and 11/03 Acute kidney injury 04/04/2014 03/07/2019 Pneumonia 02/04/2014 08/06/2015 Polyarthritis 01/23/2014 02/08/2018 Overview: Recent shoulder pain, bilateral knee shabnam n and wrist pain. ESR 80. Acute colitis 01/23/2014 02/11/2018 Overview: Mild inflammation and stranding of recto -sigmoid colon, 01/23/14. Diarrhea. documented as of this encounter (statuses as of 11/02/2020) Immunizations Name Administration Dates Next Due FLU VACCINE TRIVALENT 09/25/2008 MULTIDOSE(Fluvirin,Afluria) FLU VACCINE SINGLE DOSE 07/28/2020, 12/18/2019, 08/18/2017, 0.5mL(6MO+Fluzone/Flulaval/Fluarix,3YR 09/01/2014 +Afluria) FLU VACCINE SINGLE DOSE 08/18/2017 0.5mL(6MO+Fluzone/Flulaval/Fluarix/3YR +Afluria) Influenza Vaccine 08/19/2016 Pneumococcal Conj PCV13 11/10/2014 Pneumococcal Polysaccharide PPSV23 10/14/2016 TDAP 01/13/2014 Td(adult)preservative free 10/17/1978 documented as of this encounter Social History Tobacco Use Types Packs/Day Years Used Date Never Smoker Smokeless Tobacco: Current User Chew Quit: 07/06/2017 Comments: 1-2 dips per day 03/22/18 Alcohol Use Drinks/Week oz/Week Comments Yes Alcohol Habits Answer Date Recorded How often do you have a drink containing alcohol? 2-4 times a month 04/30/2020 How many drinks containing alcohol do you have on a 3 or 4 04/30/2020 typical day when you are drinking? How often do you have six or more drinks on one Never 04/30/2020 occasion? Sex Assigned at Date Recorded Not on file documented as of this encounter Functional Status Functional Status Response Date of Assessment Is the person deaf or does he/she have serious difficulty No 11/11/2017 hearing? Is this person blind or does he/she have difficulty No 11/11/2017 seeing even when wearing glasses? Do you have difficulty with walking, balance, climbing No 11/11/2017 stairs, or had a fall in the last 3 months? Does the patient have difficulty dressing or bathing? No 11/12/2017 Because of a physical, mental, or emotional condition; No 11/12/2017 does this person have difficulty doing errands alone such as visiting a doctor's office or shopping? Cognitive Status Response Date of Assessment Because of a physical, mental, or emotional condition; No 11/12/2017 does this person have serious difficulty concentrating, remembering, or making decisions? documented as of this encounter Plan of Treatment Date Type Specialty Care Team Description 11/05/2020 Office Visit Internal Medicine Marciano Ellison, DO [address] [place] [address] [phone] 11/10/2020 Office Visit Rheumatology Charbel Nina MD [address] [place] [address] [phone] Name Type Priority Associated Diagnoses Order S chedule CLINIC REFERRAL Referral Routine Closed fracture of Ordere d: 11/02/2020 OCCUPATIONAL MED NON ONE right ankle with CHART delayed healing, subsequent encounter documented as of this encounter Implants Implanted Type Area Transitional Care Liaison Device Shelf Model / Identifier Expiration Serial / Date Lot [employer] Dual Lead Pacemaker-02/06/2014 Cardiovascular Left: [employer] EVIA DR-T / Implanted: 02/06/2014 by Burt Casas MD (Quantity not on file) CHEST [id number] / Explanted: (Quantity not on file) documented as of this encounter Visit Diagnoses Diagnosis Closed fracture of right ankle with bernardino yed healing, subsequent encounter - Primary documented in this encounter
--- NOTE | 2020-11-02 12:19 | DISCH ---
PRIMARY DISCHARGE DIAGNOSES: 1. Acute hypoxic respiratory failure due to concern for persistent COVID-19 infection versus heart failure versus pulmonary fibrosis. 2. COVID-19 infection, now 24 days out from diagnosis. He has persistent cough, but it is improving. No fevers. 3. Community-acquired pneumonia. After COVID-19, he completed 5 days of IV Rocephin and oral doxycycline. 4. Generalized weakness and deconditioning related to COVID infection. 5. 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 Rituxan last in April I had been holding Imuran 6. Chronic kidney disease related to his known vasculitis. His creatinine was 1.1 with a GFR greater than 60 on transfer. 7. Hypokalemia, severe, but resolved with replacement. 8. Mild dehydration and hypotension this a.m. with concerns for poor perfusion. He got 500 mL bolus prior to transfer. He had received a total of 1 L initially during his hospital stay for hypotension. 9. Chronic diastolic heart failure, EF 60% back in 2017. Due to increasing hypoxia over the weekend, he received IV Lasix and diuresed over 3 L, yet his respiratory status failed to improve. He was still requiring 5 L of oxygen to keep sats over 90%. His max oxygen needs were 6 L that was up with activity. 10.Steroid-induced diabetes. Blood sugars were well controlled. He was restarted on 500 b.i.d. of metformin a couple of days after his CT scan. 11.Atrial fibrillation by history. He had no events on telemetry. 12.Essential hypertension now with hypotension. He had been on metoprolol during his whole stay, it was held this morning. I did restart his lisinopril which was given on Monday and Monday, but not this morning. 13.Obesity. 14.Sleep apnea. REASON FOR ADMISSION: On the date of admission, this 64-year-old male who had COVID diagnosed on 10/09/2020 after presenting to the Nephrology Clinic on 10/08/2020 with a low-grade fever. He has had continued cough, shortness of breath, and fatigue, and in fact, had an observation admission on 10/23/2020 to 10/24/2020. He was placed on increased prednisone at that time. During his admission this time, he came to the clinic, he looked quite poor, weak, and short of breath, and was 88% on room air. He had a D-dimer that was up to 4. Therefore, underwent a CT PE protocol which ruled out any PEs. His white count was normal at the time. However, the decision was made to place him on IV antibiotics for a post COVID pneumonia. The patient never had any fevers during his stay. However, he continued to be short of breath, and in fact, progressed to requiring 6 L of oxygen at one point, and despite IV Lasix, he did not improve his oxygen status and had more hypotension. This morning, his extremities were cool. I decided to pursue further lab work, EKG, and repeat a chest x-ray. He did have some central pulmonary vascular congestion noted with coarse pulmonary infiltrates. Findings are infectious or inflammatory in nature. EKG showed a sinus rhythm. He does have a pacemaker and was pacing also at times when he was on telemetry. He had no pleural effusions on his chest x-ray. Lab work returned this morning. White count was 15, hemoglobin 17.4, platelets 166. His previous hemoglobin had been 15.5. His D-dimer was down to 1.03. His ESR was 7. Venous blood gases showed a pCO2 of 26. Sodium 134, potassium 4.6, chloride 103, bicarb 18, BUN 39, creatinine 1.1, glucose 127, lactic was 2.8, troponin 0.017, calcium 8.4, CRP 2.8, and proBNP down to 246 when it had been over 1000. DISCHARGE PLANS AND INSTRUCTIONS: The patient is transferring to [facility] for further care. Given his immunosuppression, they will take him into the COVID unit and may consider further treatments there. At one time prior to transfer, his blood pressure did drop to 80/52, therefore a 500 mL saline bolus was given. The patient was updated on the transfer plan and all paperwork reported completed. I asked if I needed to update family, he had already updated them. PHYSICAL EXAMINATION: Vital Signs: His discharge vitals at 10:30 were temperature 97.4, pulse 64, blood pressure 103/44, respiratory rate 24, O2 of 92 on 5 L. General: He is in no acute distress, but he is quite pale in appearance when normally he has a reddish appearance to his face. Heart: Regular rate and rhythm without murmur. Lungs: Lung sounds were clear to auscultation bilaterally without crackles or wheezes appreciated today. Abdomen: Positive bowel sounds. Soft, nondistended, nontender. Extremities: Cool, especially in the legs from the mid sadler down. His hands were even cool. No edema. Mental Status: Alert and orientated x3. He did admit that he was quite fatigued and felt dizzy upon getting up. Greater than 30 minutes spent on this transfer process. MKA: 11/02/2020 10:59:55 MODL: 11/02/2020 11:56:25 /[id number] MTDD
[2020-11-02] MEDS ORDERED: metFORMIN 500 MG Tab PO SCH (18:00)
[2020-11-03] MEDS ORDERED: Potassium Chloride 20 MEQ Tab.ER PO SCH (08:00)
== END 2020-11-02 11:55 | disposition short-term general hospital (02) | DRG 193 ==
LOC: VM.MS 16:23 → OBSVTOIN 10-28 08:35
PROVIDERS: ADMIT Internal Medicine; ATTEND Internal Medicine
DX: J18.9 Pneumonia, unspecified organism (principal); J96.01 Acute respiratory failure with hypoxia; D84.9 Immunodeficiency, unspecified; I50.32 Chronic diastolic (congestive) heart failure; I44.2 Atrioventricular block, complete; E86.0 Dehydration; I77.6 Arteritis, unspecified; N18.9 Chronic kidney disease, unspecified; E87.6 Hypokalemia; I95.9 Hypotension, unspecified; I11.0 Hypertensive heart disease with heart failure; E11.9 Type 2 diabetes mellitus without complications; T38.0X5A Adverse effect of glucocorticoids and synthetic analogues, initial encounter; I48.91 Unspecified atrial fibrillation; E66.9 Obesity, unspecified; N18.30 Chronic kidney disease, stage 3 unspecified; E78.5 Hyperlipidemia, unspecified; M10.9 Gout, unspecified; I25.10 Atherosclerotic heart disease of native coronary artery without angina pectoris; M17.0 Bilateral primary osteoarthritis of knee; G47.33 Obstructive sleep apnea (adult) (pediatric); Z79.52 Long term (current) use of systemic steroids; Z79.899 Other long term (current) drug therapy; Z79.84 Long term (current) use of oral hypoglycemic drugs; Z95.0 Presence of cardiac pacemaker; Z87.01 Personal history of pneumonia (recurrent); Z90.49 Acquired absence of other specified parts of digestive tract; Z86.19 Personal history of other infectious and parasitic diseases
CPT/HCPCS: 36415; 71045; 71046; 71275; 80048; 80053; 81001; 82728; 82803; 82962; 83605; 83735; 83880; 84132; 84484; 85025; 85027; 85379; 85610; 85652; 86140; 93005; 94760; 96372; 96374; 97116-GP; 97161-GP; 97530-GP; A9270-GY; G0378; G0379; J0696; J1650; J1815-GY; J1940; J3480; J7030; J7512; J8540; Q9967